=== PATIENT | male | born 2000 | race Caucasian/White ===

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

== ENCOUNTER → 2020-04-26 | Outpatient (REF) | payer OTHER ==
[~2020-04-26] MED LIST changes: -CIPR0.3S OD; +CIPR0.3S6 OD; +MONT10TA10 PO; -MONT10TA4 PO
[2020-04-26 13:02] LABS: HEMATOCRIT 42.3 % (42.0-52.0); HEMOGLOBIN 13.9 g/dl (13.5-17.5); MEAN CORPUSCULAR HEMOGLOBIN 31.4 pg (27.0-33.0); MEAN CORPUSCULAR HGB CONC 32.9 g/dl (32.0-36.5); MEAN CORPUSCULAR VOLUME 95.7 fl (80.0-96.0); PLATELET COUNT, AUTOMATED 255 10^3/uL (150-450); RED BLOOD COUNT 4.42 10^6/uL (4.30-6.10); WHITE BLOOD COUNT 9.4 10^3/uL (4.0-10.0)
[2020-04-26 13:23] LABS: ATYPICAL LYMPH 3 % (0-5); BASOPHILS 1 % (0-1); EOSINOPHILS 2 % (0-3); LYMPHOCYTES 57 % (16-44); MONOCYTES 2 % (0-5); NEUTROPHILS 35 % (28-66); PLATELET ESTIMATE NORMAL (NORMAL)
[2020-04-26 13:41] LABS: ALBUMIN 4.7 GM/DL (3.2-5.2); ALT/SGPT 17 U/L (12-78); BILIRUBIN,TOTAL 0.7 MG/DL (0.2-1.0); BLOOD UREA NITROGEN 10 MG/DL (7-18); CALCIUM LEVEL 9.5 MG/DL (8.5-10.1); CARBON DIOXIDE LEVEL 29 MEQ/L (21-32); CHLORIDE LEVEL 107 MEQ/L (98-107); CHOLESTEROL LEVEL 165 MG/DL (<200); CHOLESTEROL RISK RATIO 2.538 (<5); CREATININE FOR GFR 0.98 MG/DL (0.70-1.30); FREE T4 0.94 NG/DL (0.78-1.33); GLUCOSE, FASTING 95 MG/DL (70-100); HDL CHOLESTEROL 65 MG/DL (>40); LDL CHOLESTEROL 75 MG/DL (<100); NON-HDL-C 100 MG/DL; POTASSIUM SERUM 4.4 MEQ/L (3.5-5.1); SODIUM LEVEL 141 MEQ/L (136-145); TOTAL 25(OH) VITAMIN D 17.1 NG/ML (30.0-100.0); TOTAL PROTEIN 7.4 GM/DL (6.4-8.2); TRIGLYCERIDES LEVEL 123 MG/DL (<150)
[2020-04-26 13:46] LABS: APPEARANCE, URINE CLEAR (CLEAR); BACTERIA, URINE AUTO NEGATIVE (NEGATIVE); BILIRUBIN, URINE AUTO NEGATIVE (NEGATIVE); BLOOD, URINE BLOOD NEGATIVE (NEGATIVE); COLOR, URINE STRAW (YELLOW); GLUCOSE, URINE (UA) AUTO NEGATIVE (NEGATIVE); KETONE, URINE AUTO NEGATIVE (NEGATIVE); LEUKOCYTE ESTERASE, URINE AUTO NEGATIVE (NEGATIVE); NITRITE, URINE AUTO NEGATIVE (NEGATIVE); PROTEIN, URINE AUTO NEGATIVE (NEGATIVE); RBC, URINE AUTO 0 /HPF (0-3); SPECIFIC GRAVITY URINE AUTO 1.006 (1.002-1.035); SQUAMOUS EPITHELIAL CELL UR AU 0 /HPF (0-6); UROBILINOGEN, URINE AUTO 0.2 mg/dL (0.0-2.0); WBC, URINE AUTO 1 /HPF (0-3)
[2020-04-26 16:24] LABS: HEMOGLOBIN A1c 5.3 %
== END ==
LOC: M LAB REF 12:19
PROVIDERS: ATTEND Nurse Practitioner Family
DX: Z00.01 Encounter for general adult medical examination with abnormal findings (principal); Z13.228 Encounter for screening for other metabolic disorders; F17.200 Nicotine dependence, unspecified, uncomplicated; J45.909 Unspecified asthma, uncomplicated; F31.9 Bipolar disorder, unspecified; R30.0 Dysuria

== ENCOUNTER 2020-10-09 21:36 | Emergency (ER) | payer OTHER ==
[~2020-10-09] VITALS: Ht 175.3 cm; Wt 59.1 kg
[~2020-10-09 21:36] MED LIST changes: +OMEP40CA4 PO; -OMEP40CA97 PO
[2020-10-09 21:56] VITALS: BP 131/85
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
[2020-10-10] MEDS ORDERED: IBUP-1022 PO (00:27)
[2020-10-10] MEDS ORDERED: IBUPROFEN 800 MG TAB PO ONE (00:40)
== END 2020-10-10 00:55 | disposition home or self-care (01) ==
LOC: M ED 21:36
DX: S93.402A Sprain of unspecified ligament of left ankle, initial encounter (principal); V48.2XXA Person on outside of car injured in noncollision transport accident in nontraffic accident, initial encounter; Z88.8 Allergy status to other drugs, medicaments and biological substances

== ENCOUNTER → 2020-10-13 | Outpatient (CLI) | payer OTHER, BC ==
--- NOTE | 2020-10-13 16:31 | REP ---
INDICATION: PAIN. COMPARISON: Comparison left ankle series October 09, 2020.. TECHNIQUE: A single weight-bearing AP radiograph of the foot is acquired as requested. FINDINGS: The Lisfranc articulations are normally aligned. No fracture or subluxation is seen. Overall mineralization pattern is normal. IMPRESSION: Negative standing AP view of the left foot. <Electronically signed by Boris Fierro > 10/13/20 0730
--- NOTE | 2020-10-13 16:32 | REP ---
INDICATION: PAIN. COMPARISON: None. TECHNIQUE: Left ankle series: 7 views including Varus and valgus stress views. FINDINGS: Ankle mortise is intact. Stress view show no subluxation or instability. No fracture is seen. Overall mineralization pattern is normal. No evidence of arthropathy. IMPRESSION: Negative radiographs of the left ankle including stress views. <Electronically signed by Boris Fierro > 10/13/20 [id number]
== END ==
LOC: M SOG 15:27
PROVIDERS: ATTEND Orthopaedic Surgery Adult Reconstructive Orthopaedic Surgery
DX: M79.672 Pain in left foot (principal); M25.572 Pain in left ankle and joints of left foot

== ENCOUNTER 2020-12-31 23:48 | Emergency (ER) | payer OTHER ==
[~2020-12-31] VITALS: Ht 172.7 cm; Wt 55.5 kg
[2021-01-01 07:41] VITALS: BP 120/50
== END 2021-01-01 08:15 | disposition home or self-care (01) ==
LOC: M ED 23:48
DX: R42 Dizziness and giddiness (principal); Z88.8 Allergy status to other drugs, medicaments and biological substances; Z88.1 Allergy status to other antibiotic agents

== ENCOUNTER 2021-01-16 14:00 | Emergency (ER) | payer OTHER ==
[~2021-01-16] VITALS: Ht 172.7 cm; Wt 54.4 kg
[2021-01-16 14:01] VITALS: BP 123/65
[2021-01-16] MEDS ORDERED: LIDOCAINE 5% (LIDODERM) PATCH TD ONE (16:35)
[2021-01-16] MEDS ORDERED: KETOROLAC 60MG 2ML VIAL IM ONE (16:35)
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
[2021-01-16] MEDS ORDERED: ASPE4PAD TOP (17:16)
[2021-01-16] MEDS ORDERED: METH-1165 PO (17:16)
[2021-01-16] MEDS ORDERED: NAPR-837 PO (17:16)
[2021-01-16] MEDS ORDERED: methocarbamoL 750 MG TAB PO ONE (17:20)
[2021-01-16] MEDS ORDERED: **NOTE PATIENT COMMENT** MISC XX SCH (21:00)
== END 2021-01-16 17:35 | disposition home or self-care (01) ==
LOC: M ED 14:00
DX: M54.6 Pain in thoracic spine (principal); Z88.8 Allergy status to other drugs, medicaments and biological substances
CPT/HCPCS: 72125; 72128; 96372; 99282; J1885

== ENCOUNTER 2021-03-27 10:08 | Emergency (ER) | payer OTHER ==
[~2021-03-27] VITALS: Ht 172.7 cm; Wt 54.8 kg
[~2021-03-27 10:08] MED LIST changes: +ASPE4PAD TOP; +METH-1165 PO; +NAPR-837 PO
--- OUTSIDE RECORDS SUMMARY | 2021-03-27 10:13 | CCD | Continuity of Care Document ---
Author Author Reji LUCAS DO Organization Unknown Address [address] [place] [address], [facility] [place] [address] Phone [phone] Care Team Providers Care Swimming Pool Servicer Name Role Phone AUTM Unavailable Problems Active Problems Provider Date Allergic asthma without status asthmaticus Onset: 03/07/2013 Essential hypertension Onset: 03/07/2013 Social History Type Date Description Comments Sex Unknown Tobacco Use Start: Unknown Never Smoked Cigarettes ETOH Use Denies alcohol use Recreational Drug Use Marijuana and THC Pens Tobacco Use Start: Unknown Patient is a current smoker, smo kes some days Tobacco Use Start: Unknown Vape Daily Allergies, Adverse Reactions, Alerts Active Allergies Criticality Reaction | Severity Comments Date Ceftin Unable to assess criticality 03/07/2013 Medications Active Medications SIG Qnty Indications Ordering Provide r Date Naproxen 500mg Tablets Unknown Methocarbamol 750mg Tablets 2 tablets by mouth every 6 hourly as needed for muscle spasm Unknown Immunizations Description No Information Available Vital Signs Date Vital Result Comment 10/13/2020 2:57pm Body Temperature 97.1 F Height 69 inches 5'9" Weight 121.00 lb BMI (Body Mass Index) 17.9 kg/m2 [place] Body Weight 160 lb Weight 54.886 kg BSA (Body Surface Area) 1.67 m2 03/07/2013 8:32am Body Temperature 98.0 F Height 62 inches 5'2" Weight 102.00 lb BMI (Body Mass Index) 18.7 kg/m2 Weight 46.267 kg Weight Percentile 54th Height Percentile 59 % BSA (Body Surface Area) 1.44 m2 Results Description No Information Available Procedures Date Code Description Status 01/18/2021 25128 Office/Outpatient Established Lo w MDM 20-29 Min Completed 10/13/2020 66766 Office/Outpatient New Low MDM 30 -44 Minutes Completed Medical Devices Description No Information Available Encounters Type Date Location Provider Dx Diagnosis Office Visit 01/18/2021 8:30a [facility] Edwin Lucas DO M54.6 Pain in thoracic spine Office Visit 10/13/2020 3:00p [facility] Antelmo Reed MD M25.572 Pain in left ankle and joints of left foot Assessments Date Code Description Provider 01/18/2021 M54.6 Pain in thoracic spine William Lucas DO 10/13/2020 M25.572 Pain in left ankle and joints of left foot Antelmo Reed MD Plan of Treatment Future Appointment(s):* 02/01/2021 9:40 am - William Lucas DO at [facility] 01/18/2021 - William Lucas DO* M54.6 Pain in thoracic spine Functional Status Description No Information Available Mental Status Description No Information Available Referrals Description No Information Available
--- OUTSIDE RECORDS SUMMARY | 2021-03-27 10:13 | CCD | Continuity of Care Document ---
Author Author Reji LUCAS DO Organization Unknown Address [id number] [place] [address] [place] [address] Phone [phone] Care Team Providers Care Nurse First Aid Name Role Phone AUTM Unavailable Problems Active [...] days Tobacco Use Start: Unknown Vape Daily Allergies and adverse reactions Active Allergies Criticality Reaction | Severity Comments Date Ceftin Unable to assess criticality 03/07/2013 Trazodone Unable to assess criticality hallucinaton s 02/01/2021 Medications Active Medications SIG Qnty Indications Ordering Provide r Date Naproxen 500mg Tablets Unknown Methocarbamol 750mg Tablets 2 tablets by mouth every 6 hourly as needed for muscle spasm Unknown Lidocaine 5% Patches Unknown Immunizations Description No Information Available Vital Signs Date Vital Result Comment 10/13/2020 2:57pm Body Temperature 97.1 F Height 69 inches 5'9" Weight 121.00 lb BMI (Body Mass Index) 17.9 kg/m2 [place] Body Weight 160 lb Weight 54.886 kg BSA (Body Surface Area) 1.67 m2 03/07/2013 8:32am Body Temperature 98.0 F Height 62 inches 5'2" Weight 102.00 lb BMI (Body Mass Index) 18.7 kg/m2 Weight 46.267 kg Weight Percentile 54th Height Percentile 59 % BSA (Body Surface Area) 1.44 m2 Results Description No Information Available Procedures Date Code Description Status 01/18/2021 82054 Office/Outpatient Established Lo w MDM 20-29 Min Completed 10/13/2020 56114 Office/Outpatient New Low MDM 30 -44 Minutes Completed Medical Devices Description No Information Available Encounters Type Date Location Provider Dx Diagnosis Office Visit 01/18/2021 8:30a [facility] Edwin Lucas DO M54.6 Pain in thoracic spine Office Visit 10/13/2020 3:00p [facility] Antelmo Reed MD M25.572 Pain in left ankle and joints of left foot Assessments Date Code Description Provider 02/01/2021 M54.6 Pain in thoracic spine William Lucas DO 01/18/2021 M54.6 Pain in thoracic spine William Lucas DO 10/13/2020 M25.572 Pain in left ankle and joints of left foot Antelmo Reed MD Plan of Treatment 02/01/2021 - William Lucas DO* M54.6 Pain in thoracic spine* New Xrays:* MRI Thoracic Spine W/O Contrast, Ordered: 02/01/21 * MRI Lumbar Spine W/O Contrast, Ordered: 02/01/21 * Comments:* Follow-up to review MRI thoracic spine Functional Status Description No Information Available Mental Status Description No Information Available Referrals Description No Information Available
--- OUTSIDE RECORDS SUMMARY | 2021-03-27 10:13 | CCD | Continuity of Care Document ---
Author Author Reji LUCAS DO Organization Unknown Address [address] [place] [address] [place] [address] Phone [phone] Care Team Providers Care Laborer Adjustable Steel Joist Name Role Phone AUTM Unavailable Problems Active [...] lb BMI (Body Mass Index) 17.9 kg/m2 [place] Body Weight 160 lb Weight 54.886 kg BSA (Body Surface Area) 1.67 m2 03/07/2013 8:32am Body Temperature 98.0 F Height 62 inches 5'2" Weight 102.00 lb BMI (Body Mass Index) 18.7 kg/m2 Weight 46.267 kg Weight Percentile 54th Height Percentile 59 % BSA (Body Surface Area) 1.44 m2 Results Description No Information Available Procedures Date Code Description Status 02/01/2021 89163 Office/Outpatient Established Lo w MDM 20-29 Min Completed 01/18/2021 52666 Office/Outpatient Established Lo w MDM 20-29 Min Completed 10/13/2020 65085 Office/Outpatient New Low MDM 30 -44 Minutes Completed Medical Devices Description No Information Available Encounters Type Date Location Provider Dx Diagnosis Office Visit 02/01/2021 9:40a [facility] Edwin Lucas DO M54.6 Pain in thoracic spine Office Visit 01/18/2021 8:30a [facility] Edwin Lucas DO M54.6 Pain in thoracic spine Office Visit 10/13/2020 3:00p [facility] Antelmo Reed MD M25.572 Pain in [...] Lucas DO* M54.6 Pain in thoracic spine* Comments:* Follow-up to review MRI thoracic spine Functional Status Description No Information Available Mental Status Description No Information Available Referrals Description No Information Available
--- OUTSIDE RECORDS SUMMARY | 2021-03-27 10:13 | CCD | Continuity of Care Document ---
Author Author Reji LUCAS DO Organization Unknown Address [address] [place] [address] [place] [address] Phone [phone] Care Team Providers Care Lead Teller Name Role Phone AUTM Unavailable Problems Active [...] lb BMI (Body Mass Index) 17.9 kg/m2 [place] Body Weight 160 lb Weight 54.886 kg BSA (Body Surface Area) 1.67 m2 03/07/2013 8:32am Body Temperature 98.0 F Height 62 inches 5'2" Weight 102.00 lb BMI (Body Mass Index) 18.7 kg/m2 Weight 46.267 kg Weight Percentile 54th Height Percentile 59 % BSA (Body Surface Area) 1.44 m2 Results Description No Information Available Procedures Date Code Description Status 10/13/2020 71421 Office/Outpatient New Low MDM 30 -44 Minutes Completed Medical Devices Description No Information Available Encounters Type Date Location Provider Dx Diagnosis Office Visit 10/13/2020 3:00p [facility] Antelmo Reed MD M25.572 Pain in left ankle and joints of left foot Assessments Date Code Description Provider 01/18/2021 M54.5 Low back pain Martinez Lucas DO 10/13/2020 M25.572 Pain in left ankle and joints of left foot Antelmo Reed MD Plan of Treatment Future Appointment(s):* 02/01/2021 9:40 am - William Lucas DO at [facility] 01/18/2021 - William Lucas DO* M54.5 Low back pain* Comments:* 1. Work off note 1 week2. Follow-up 1 week for reassessment. Functional Status Description No Information Available Mental Status Description No Information Available Referrals Description No Information Available
--- OUTSIDE RECORDS SUMMARY | 2021-03-27 10:14 | CCD ---
Author Author [facility] Organization [facility] Address Unknown Phone Unavailable Care Team Providers Care Police Specialist Name Role Phone NO, PCP Unavailable Unavailable Sabrina Ramirez Unavailable Huang, A Ping TRAY WORKER Unavailable Unavailable Huang, A Ping TRAY WORKER Unavailable Unavailable Huang, A Ping TRAY WORKER Unavailable Unavailable Huang, A Ping TRAY WORKER Unavailable Unavailable Huang, A Ping TRAY WORKER Unavailable Unavailable Huang, A Ping TRAY WORKER Unavailable Unavailable Huang, A Ping TRAY WORKER Unavailable Unavailable Huang, A Ping TRAY WORKER Unavailable Unavailable Huang, A Ping TRAY WORKER Unavailable Unavailable Huang, A Ping TRAY WORKER Unavailable Unavailable Huang, A Ping TRAY WORKER Unavailable Unavailable Huang, A Ping TRAY WORKER Unavailable Unavailable Huang, A Ping TRAY WORKER Unavailable Unavailable Huang, A Ping TRAY WORKER Unavailable Unavailable Huang, A Ping TRAY WORKER Unavailable Unavailable Huang, A Ping TRAY WORKER Unavailable Unavailable Huang, A Ping TRAY WORKER Unavailable Unavailable Huang, A Ping TRAY WORKER Unavailable Unavailable Huang, A Ping TRAY WORKER Unavailable Unavailable Huang, A Ping TRAY WORKER Unavailable Unavailable Huang, A Ping TRAY WORKER Unavailable Unavailable Huang, A Ping TRAY WORKER Unavailable Unavailable Huang, A Ping TRAY WORKER Unavailable Unavailable Huang, A Ping TRAY WORKER Unavailable Unavailable Huang, A Ping TRAY WORKER Unavailable Unavailable Huang, A Ping TRAY WORKER Unavailable Unavailable Huang, A Ping TRAY WORKER Unavailable Unavailable Huang, A Ping TRAY WORKER Unavailable Unavailable Huang, A Ping TRAY WORKER Unavailable Unavailable Huang, A Ping TRAY WORKER Unavailable Unavailable Huang, A Ping TRAY WORKER Unavailable Unavailable WILLIAMS KWON MD Unavailable Unavailable WILLIAMS KWON MD Unavailable Unavailable WILLIAMS KWON MD Unavailable Unavailable Antelmo Reed MD Unavailable Unavailable Antelmo Reed MD Unavailable Unavailable Antelmo Reed MD Unavailable Unavailable Antelmo Reed MD Unavailable Unavailable Antelmo Reed MD Unavailable Unavailable Antelmo Reed MD Unavailable Unavailable Antelmo Reed MD Unavailable Unavailable Antelmo Reed MD Unavailable Unavailable Antelmo Reed MD Unavailable Unavailable Antelmo Reed MD Unavailable Unavailable Antelmo Reed MD Unavailable Unavailable Jeff Simmons Unavailable Jeff Simmons Unavailable Dennis WADE MD Unavailable Unavailable MAURODennis CAVANAUGH MD Unavailable Unavailable MAURODennis CAVANAUGH MD Unavailable Unavailable MAURODennis CAVANAUGH MD Unavailable Unavailable MAURODennis CAVANAUGH MD Unavailable Unavailable MAURODennis CAVANAUGH MD Unavailable Unavailable MAURODennis CAVANAUGH MD Unavailable Unavailable MAURODennis CAVANAUGH MD Unavailable Unavailable MAURODennis CAVANAUGH MD Unavailable Unavailable MAURODennis CAVANAUGH MD Unavailable Unavailable MAURODennis CAVANAUGH MD Unavailable Unavailable MAURODennis CAVANAUGH MD Unavailable Unavailable MAURODennis CAVANAUGH MD Unavailable Unavailable MAURODennis CAVANAUGH MD Unavailable Unavailable MAURODennis CAVANAUGH MD Unavailable Unavailable MAURODennis CAVANAUGH MD Unavailable Unavailable MAURODennis CAVANAUGH MD Unavailable Unavailable MAURODennis CAVANAUGH MD Unavailable Unavailable MAURODennis CAVANAUGH MD Unavailable Unavailable MAURODennis CAVANAUGH MD Unavailable Unavailable Sindy IGLESIAS MD Unavailable Unavailable Sindy IGLESIAS MD Unavailable Unavailable CHANLIECCO, C FRANCESCA MD Unavailable Unavailable CHANLIECCO, C FRANCESCA MD Unavailable Unavailable CHANLIECCO, C FRANCESCA MD Unavailable Unavailable CHANLIECCO, C FRANCESCA MD Unavailable Unavailable CHANLIECCO, C FRANCESCA MD Unavailable Unavailable CHANLIECCO, C FRANCESCA MD Unavailable Unavailable CHANLIECCO, C FRANCESCA MD Unavailable Unavailable CHANLIECCO, C FRANCESCA MD Unavailable Unavailable CHANLIECCO, C FRANCESCA MD Unavailable Unavailable Re-disclosure Warning The records that you are about to access may contain information from federally-assisted alcohol or drug abuse programs. If such information is present, then the following federally mandated warning applies: This information has been disclosed to you from records protected by federal confidentiality rules (42 CFR part 2). The federal rules prohibit you from making any further disclosure of this information unless further disclosure is expressly permitted by the written consent of the person to whom it pertains or as otherwise permitted by 42 CFR part 2. A general authorization for the release of medical or other information is NOT sufficient for this purpose. The Federal rules restrict any use of the information to criminally investigate or prosecute any alcohol or drug abuse patient.The records that you are about to access may contain highly sensitive health information, the redisclosure of which is protected by Article 27-F of the [facility] Public Health law. If you continue you may have access to information: Regarding HIV / AIDS; Provided by facilities licensed or operated by the [facility] Office of Mental Health; or Provided by the [facility] Office for People With Developmental Disabilities. If such information is present, then the following [facility] mandated warning applies: This information has been disclosed to you from confidential records which are protected by state law. State law prohibits you from making any further disclosure of this information without the specific written consent of the person to whom it pertains, or as otherwise permitted by law. Any unauthorized further disclosure in violation of state law may result in a fine or fdc sentence or both. A general authorization for the release of medical or other information is NOT sufficient authorization for further disc losure. Family History Family Member Name Family Member Gender Family Member Status Date o f Status Description Data Source(s) Unknown Unknown Problem [facility] ([facility]) Mom Encounters Encounter Providers Location Date Indications Data Source(s ) Outpatient Attender: WILLIAMS Beckman/Meliza/Prasad/ Reindl 02/01/2021 09:40:00 AM EDT [facility] ([facility] Outpatient Attender: WILLIAMS Beckman/[place]ras/Prasad/ Reindl 01/18/2021 08:30:00 AM EDT [facility] ([facility]) Emergency Attender: FRANCESCA IGLESIAS MDConsultant: PCP NO 12/14/2020 09:48:00 PM EDT - 12/14/2020 11:43:00 PM EDT [facility] Patient discharged. Outpatient Attender: Antelmo Beckman/Meliza/Prasad/Rein dl 10/13/2020 03:00:00 PM EDT [facility] ([facility]) Brief Individual Psychotherapy - 30 min Attender: Sabrina wiley [facility] 07/12/2020 11:00:00 AM EDT - 07/12/2020 11:00:00 AM EDT [facility] ([facility]) Attender: Sabrina Ramirez 07/12/2020 12:00:00 AM EDT [facility] ([facility]) Emergency Attender: CHRISTINA WADE MDConsultant: PCP NO 06/12/2020 07:14:00 PM EST - 06/12/2020 08:46:[address] [facility] Brief Individual Psychotherapy - 30 min Attender: Sabrina wiley [facility] 06/02/2020 12:45:00 PM EST - 06/02/2020 12:45:00 PM EST [facility] ([facility]) Attender: Sabrina Ramirez 06/02/2020 12:00:00 AM EST [facility] ([facility]) Extended Individual Psychotherapy - 45 min Attender: Ken Simmons [facility] 05/28/2020 02:00:00 AM EST - 05/28/2020 02:00:00 AM EST [facility] ([facility]) Attender: Jeff Simmons 05/28/2020 12:00:00 AM EST [facility] ([facility]) Extended Individual Psychotherapy - 45 min Attender: Ken amaya [facility] 05/21/2020 02:00:00 AM EST - 05/21/2020 02:00:00 AM EST [facility] ([facility]) Attender: Jeff Simmons 05/21/2020 12:00:00 AM EST [facility] ([facility]) Extended Individual Psychotherapy - 45 min Attender: Ken jose luis [facility] 05/07/2020 02:00:00 AM EST - 05/07/2020 02:00:00 AM EST [facility] ([facility]) Attender: Jeff Simmons 05/07/2020 12:00:00 AM EST [facility] ([facility]) CHIDI ChiBC: [address] [place] [address], Ph. Attender: Ping BELTRAN [facility] Medical 04/26/2020 12:00:00 AM EST [facility] ([facility]) Extended Individual Psychotherapy - 45 min Attender: Ken jose luis [facility] 04/13/2020 12:00:00 PM EST - 04/13/2020 12:00:00 PM EST [facility] ([facility]) Attender: Jeff Simmons 04/13/2020 12:00:00 AM EST [facility] ([facility]) Extended Individual Psychotherapy - 45 min Attender: Ken amaya [facility] 03/01/2020 02:00:00 AM EST - 03/01/2020 02:00:00 AM EST [facility] ([facility]) Attender: Jeff Simmons 03/01/2020 12:00:00 AM EST [facility] ([facility]) CHIDI ChiBC: [address] [place] [address], Ph. Attender: Ping BELTRAN [facility] Medical 02/25/2020 12:00:00 AM EST [facility] ([facility]) RUBY Chi-BC: [address] [place] [address], Ph. Attender: Ping BELTRAN ID - [facility] Medical 02/25/2020 12:00:00 AM EST [facility] ([facility]) Attender: Jeff Simmons 02/17/2020 12:00:00 AM EDT [facility] ([facility]) Extended Individual Psychotherapy - 45 min Attender: Ken amaya [facility] 02/16/2020 02:00:00 AM EDT - 02/16/2020 02:00:00 AM EDT [facility] ([facility]) Attender: Jeff Simmons 02/02/2020 12:00:00 AM EDT [facility] ([facility]) Extended Individual Psychotherapy - 45 min Attender: Ken amaya [facility] 01/30/2020 02:00:00 AM EDT - 01/30/2020 02:00:00 AM EDT [facility] ([facility]) Immunizations Vaccine Date Status Description Data Source(s) New in 2011. IIV4 02/25/2020 03:22:00 PM EST completed 0.5 mL [facility] ([facility]) New in 2011. IIV4 02/25/2020 03:22:00 PM EST completed 0.5 mL [facility] ([facility]) Medications Medication Brand Name Start Date Product Form Dose Route Admi nistrative Instructions Pharmacy Instructions Status Indications Reaction Description Data Source(s) 4 % 01/18/2021 12:00:00 AM EDT adhesive patch,medicate d 15 APPLY 1 PATCH TOPICALLY ONCE DAILY APPLY 1 PATCH TOPICALLY ONCE DAILY SOLD: 01/18/2021 [facility] 500 mg 01/17/2021 12:00:00 AM EDT tablet 30 TAKE ONE TABLET BY MOUTH TWICE A DAY - TAKE WITH FOOD TAKE ONE TABLET BY MOUTH TWICE A DAY - TAKE WITH FOOD SOLD: 01/17/2021 [facility] 750 mg 01/17/2021 12:00:00 AM EDT tablet 30 TAKE ONE TABLET BY MOUTH THREE TIMES A DAY TAKE ONE TABLET BY MOUTH THREE TIMES A DAY SOLD: 01/17/2021 [facility] 600 mg 12/15/2020 12:00:00 AM EDT tablet 28 TAKE ONE TABLET BY MOUTH FOUR TIMES A DAY NEEDED FOR PAIN TAKE ONE TABLET BY MOUTH FOUR TIMES A DA Y NEEDED FOR PAIN SOLD: 12/17/2020 [facility] 600 mg 10/10/2020 12:00:00 AM EDT tablet 30 TAKE ONE TABLET BY MOUTH EVERY 6 HOURS NEEDED FOR PAIN TAKE ONE TABLET BY MOUTH EVERY 6 HOURS A S NEEDED FOR PAIN SOLD: 10/10/2020 [facility] Cyclobenzaprine hydrochloride 10 MG Oral Tablet CYCLOBENZAPR INE HCL 06/13/2020 12:00:00 AM EST tablet 9 TAKE ONE TABLET BY MOUTH THREE TIMES A DAY TAKE ONE TABLET BY MOUTH THREE TIMES A DAY SOLD: 06/13/2020 [facility] olanzapine 5 MG Oral Tablet olanzapine 5 mg tablet TAKE ONE TABLET BY MOUTH EVERY DAY AT BEDTIME olanzapine 5 mg tablet TAKE ONE TABLET B Y MOUTH EVERY DAY AT BEDTIME completed olanzapine 5 MG Oral Tablet [facility]) Penicillin V Potassium 500 MG Oral Tablet penicillin V potassium 500 mg tablet penicillin V potassium 500 mg tablet c ompleted penicillin V potassium 500 MG Oral Tablet [place] [facility]) Amoxicillin 875 MG / Clavulanate 125 MG Oral Tablet amoxicillin 875 mg-potassium clavulanate 125 mg tablet amoxicillin 875 mg-potassium clavulanate 125 mg tablet completed amoxicillin 875 MG / clavulanate 125 MG Oral Tablet [place] ([facility]) Oseltamivir 75 MG Oral Capsule oseltamiv ir 75 mg capsule TAKE ONE CAPSULE BY MOUTH TWICE A DAY oseltamivir 75 mg capsule TAKE ONE CAPSU LE BY MOUTH TWICE A DAY completed oseltamivir 75 M G Oral Capsule [place] ([facility]) cetirizine hydrochloride 10 MG Oral Tabl et cetirizine 10 mg tablet TAKE ONE TABLET BY MOUTH EVERY DAY cetirizine 10 mg tablet TAKE ONE TABLET BY MOUTH EVERY DAY completed cetirizine hydro chloride 10 MG Oral Tablet [place] ([facility]) Amoxicillin 875 MG / Clavulanate 125 MG Oral Tablet amoxicillin 875 mg-potassium clavulanate 125 mg tablet amoxicillin 875 mg-potassium clavulanate 125 mg tablet completed amoxicillin 875 MG / clavulanate 125 MG Oral Tablet [facility] ([facility]) cetirizine hydrochloride 10 MG Oral Tabl et cetirizine 10 mg tablet TAKE ONE TABLET BY MOUTH EVERY DAY cetirizine 10 mg tablet TAKE ONE TABLET BY MOUTH EVERY DAY completed cetirizine hydro chloride 10 MG Oral Tablet [place] ([facility]) 24 HR Guanfacine 1 MG Extended Release O ral Tablet guanfacine ER 1 mg tablet,extended release 24 hr TAKE ONE TABLET BY MOUTH EVERY MORNING guanfacine ER 1 mg tablet,extended release 24 hr TAKE ONE TABLET BY MOUTH EVERY MORNING completed 24 HR guanfaci ne 1 MG Extended Release Oral Tablet [place] ([facility]) Prednisone 20 MG Oral Tablet prednisone 20 mg tablet TAKE TWO TABLETS BY MOUTH EVERY DAY WITH MEALS prednisone 20 mg tablet TAKE TWO TABLETS BY MOUTH EVERY DAY WITH MEALS completed prednisone 20 MG Oral Tablet [place] ([facility]) Penicillin V Potassium 500 MG Oral Tablet penicillin V potassium 500 mg tablet penicillin V potassium 500 mg tablet c ompleted penicillin V potassium 500 MG Oral Tablet [place] ([facility]) Oseltamivir 75 MG Oral Capsule oseltamiv ir 75 mg capsule TAKE ONE CAPSULE BY MOUTH TWICE A DAY oseltamivir 75 mg capsule TAKE ONE CAPSU LE BY MOUTH TWICE A DAY completed oseltamivir 75 M G Oral Capsule [place] ([facility]) 24 HR Guanfacine 1 MG Extended Release O ral Tablet guanfacine ER 1 mg tablet,extended release 24 hr TAKE ONE TABLET BY MOUTH EVERY MORNING guanfacine ER 1 mg tablet,extended release 24 hr TAKE ONE TABLET BY MOUTH EVERY MORNING completed 24 HR guanfaci ne 1 MG Extended Release Oral Tablet [place] ([facility]) olanzapine 5 MG Oral Tablet olanzapine 5 mg tablet TAKE ONE TABLET BY MOUTH EVERY DAY AT BEDTIME olanzapine 5 mg tablet TAKE ONE TABLET B Y MOUTH EVERY DAY AT BEDTIME completed olanzapine 5 MG Oral Tablet [place] ([facility]) Prednisone 20 MG Oral Tablet prednisone 20 mg tablet TAKE TWO TABLETS BY MOUTH EVERY DAY WITH MEALS prednisone 20 mg tablet TAKE TWO TABLETS BY MOUTH EVERY DAY WITH MEALS completed prednisone 20 MG Oral Tablet [place] ([facility]) Insurance Providers Payer name Policy type / Coverage type Policy ID Covered republican ID Covered republican's relationship to rivero Policy [place] Plan Information BC/BS o [place] [facility] (HMO) [id number] Family Dependent [id number] MEDICAID [id number] Self [id number] H[employer] Options Commercial [id number] Family Dependent [id number] [employer] Commercial [id number] Family Dependent [id number] Hmo [employer] Options Commercial [id number] Family Dependent [id number] [facility] I [id number] Self [id number] [facility] Community Plan Commercial [id number] Family Dependent [id number] [facility] Community Plan Commercial [id number] Family Dependent [id number] [facility] Community Plan Commercial [id number] Family Dependent [id number] Medicaid Dental S [id number] S [id number] [employer] Net () Commercial [id number] Family Dependent [id number] Health Net () Commercial [id number] Family Dependent [id number] Health Net () Commercial [id number] Family Dependent [id number] Medicaid Medicaid [id number] Family Dependent [id number] Medicaid Medicaid [id number] Family Dependent [id number] Medicaid Medicaid [id number] Family Dependent [id number] U [id number] Self [id number] U [id number] Child [id number] MEDICAID M [id number] Self [id number] [place] 2017 Commercial [id number] Family Dependent [id number] [place] 2017 Commercial [id number] Family Dependent [id number] Medicaid Dental O [id number] S [id number] Medicaid P [id number] S [id number] [facility] [id number] FA2 [id number] Medicaid S UNAVAILABLE S UNAVAILA [facility] P UNAVAILABLE S UNAVAILABLE [place] P [id number] S [id number] MEDICAID [id number] SP [id number] [facility] [id number] FA2 [id number] [place]ARE [place] O [id number] S [id number] RUST HUMANA [id number] FA2 [id number] [place] [id number] SP [id number] MEDICAID -O/P EMERGENCY ROOM [id number] REY [id number] SP [id number] OTHER NO FAULT [id number] SP [id number] ESURANCE NO FAULT SP ESURANCE NO FAULT [id number] SP [id number] BCBS [place] HMO [id number] SP [id number] BLUE CROSS WHEAT PLAN [id number] SP [id number] BLUE CROSS WHEAT PLAN [id number] SP [id number] MEDICAID [id number] SP [id number] [facility] COMMUNITY PLAN MCDO [id number] SP [id number] MEDICAID [id number] SP [id number] SELF PAY ONLY D Managed Care [facility] O [id number] S [id number] D Managed Care [facility] P [id number] S [id number] [place] -OP [id number] 18 [id number] [facility](MCAID) P [id number] C [id number] EXCELLUS BCBS P [id number] S [id number] MEDICAID REF AMBULAT W [id number] S [id number] PCP [facility] COMMUNITY PL O [id number] S [id number] MEDICAID W [id number] BLUE CHOICE OPTION O [id number] S [id number] O BLUE [id number] SP [id number] SELF PAY UNAVAILABLE MO UNAVAILA BLE O BLUE [id number] SP [id number] Problems, Conditions, and Diagnoses Code Display Name Description Problem Type Effective Dates Data Source(s) R65311 Nicotine dependence, other tobacco produ ct, uncomplicated Nicotine dependence, other tobacco product, uncomplicated Diagnosis 12/14 09:48:00 PM [facility] G8929 Other chronic pain Other chronic pain Diagnosis 09:48:00 PM [facility] R109 Unspecified abdominal pain Unspecified abdominal pain Diagnosis 12/14/2020 09:48:00 PM [facility] [id number] Unspecified place in unspeci fied non-institutional (private) residence as the place of occurrence of the external cause Unspecified place in unspecified non-institutional (private) residence as the place of occurrence of the external cause Diagnosis 06/12/2020 07:14:00 PM [facility] [id number] Contact with other sharp obj ect(s), not elsewhere classified, initial encounter Contact with other sharp object(s), not elsewhere classified, initial encounter Diagnosis 06/12/2020 07:14:00 PM [facility] Q00185 Nicotine dependence, cigarettes, uncompl icated Nicotine dependence, cigarettes, uncomplicated Diagnosis 06/12/2020 07:14:00 PM [facility] [id number] Sprain of interphalangeal joint of right thumb, initial encounter Sprain of interphalangeal joint of right thumb, initial encounter Diagnosis 06/12/2020 07:14:00 PM [facility] [id number] Unspecified injury of right wrist, hand and finger(s), initial encounter Unspecified injury of right wrist, hand and finger(s), initial encounter Diagnosis 06/12/2020 07:14:00 PM [facility] F43.8 Other reactions to severe stress Other S 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 07/12/2020 12:00:00 AM EDT [facility] ([facility]) F12.20 Cannabis dependence, uncomplicated Cannabis Use Disorder, Moderate Condition 07/12/2020 12:00:00 AM EDT [facility] ([facility]) F31.9 Bipolar disorder, unspecified Unspecified Bipola r and Related Disorder Condition 07/12/2020 12:00:00 AM EDT [facility] ([facility]) Surgeries/Procedures Procedure Description Date Indications Data Source(s) OFFICE OUTPATIENT VISIT 15 MINUTES 02/01/2021 12:00:00 AM EDT [facility] ([facility], ) OFFICE OUTPATIENT VISIT 15 MINUTES 01/18/2021 12:00:00 AM EDT [facility] ([facility], ) OFFICE OUTPATIENT NEW 30 MINUTES 10/13/2020 12:00:00 A M EDT [facility] ([facility], ) OFFICE OUTPATIENT NEW 45 MINUTES 10/13/2020 12:00:00 A M EDT [facility] ([facility], ) Brief Individual Psychotherapy - 30 min 07/12/2020 12:00:00 AM EDT - 07/12/2020 12:00:00 AM EDT [facility] ([facility]) Brief Individual Psychotherapy - 30 min 07/12/2020 12: 00:00 AM EDT [facility] ([facility]) Brief Individual Psychotherapy - 30 min 06/02/2020 12:00:00 AM EST - 06/02/2020 12:00:00 AM EST [facility] ([facility]) Brief Individual Psychotherapy - 30 min 06/02/2020 12: 00:00 AM EST [facility] ([facility]) Extended Individual Psychotherapy - 45 min 05/28/2020 12:00:00 AM EST - 05/28/2020 12:00:00 AM EST [facility] ([facility]) Extended Individual Psychotherapy - 45 min 12:00:00 AM EST [facility] ([facility]) Extended Individual Psychotherapy - 45 min 05/21/2020 12:00:00 AM EST - 05/21/2020 12:00:00 AM EST [facility] ([facility]) Extended Individual Psychotherapy - 45 min 12:00:00 AM EST [facility] ([facility]) Extended Individual Psychotherapy - 45 min 05/07/2020 12:00:00 AM EST - 05/07/2020 12:00:00 AM EST [facility] ([facility]) Extended Individual Psychotherapy - 45 min 12:00:00 AM EST [facility] ([facility]) Extended Individual Psychotherapy - 45 min 04/13/2020 12:00:00 AM EST - 04/13/2020 12:00:00 AM EST [facility] ([facility]) Extended Individual Psychotherapy - 45 min 0 12:00:00 AM EST [facility] ([facility]) Extended Individual Psychotherapy - 45 min 03/01/2020 12:00:00 AM EST - 03/01/2020 12:00:00 AM EST [facility] ([facility]) Extended Individual Psychotherapy - 45 min 0 12:00:00 AM EST [facility] ([facility]) Extended Individual Psychotherapy - 45 min 02/17/2020 12:00:00 AM EDT - 02/17/2020 12:00:00 AM EDT [facility] ([facility]) Extended Individual Psychotherapy - 45 min 0 12:00:00 AM EDT [facility] ([facility]) Extended Individual Psychotherapy - 45 min 02/02/2020 12:00:00 AM EDT - 02/02/2020 12:00:00 AM EDT [facility] ([facility]) Extended Individual Psychotherapy - 45 min 12:00:00 AM EDT [facility] ([facility]) Results ID Date Data Source [id number] 01/01/2021 07:27:00 AM EDT [facility] Name Value Range Interpretation Code Description Data Daniela rce(s) Supporting Document(s) SARS COVID ANTIGEN NEGATIVE [place] This lab was ordered by [facility] nd reported by [facility]. ID Date Data Source [id number] 12/14/2020 09:48:00 PM EDT [facility] 1 OrderSheet [facility] Emergency Department [address] [place] [address] Phone #: ext- [phone] 12/14/2020 21:47 Patient: ALEXSANDER BAIN Sex: M : 2000 Age: 20yWEIGHT:56.6 kg (S) HEIGHT:68 inches (S) BMI:19.0ALLERGIES: CephtinCHIEF COMPLAINT: flank pain:, LtDIAGNOSIS: Flank painLAB ORDERSOrder Description Priority Entered Acknowledged InitialedUrinalysis (Clean STAT 22:00 12/14/2020 22:15 Yojana Morales) Francesca Iglesias R.N. ;DIAGNOSTIC STUDY ORDERSOrder Description Priority Entered Acknowledged InitialedMEDICATION/IV/DRIP/FLUID ORDERSOrder Description Priority Entered Acknowledged InitialedGENERAL ORDERSOrder Manjinder cription Priority Entered Acknowledged Initialed[Electronically signed by Katherin Morales R.N. (23:43 12/14/2020)][Electronically signed by Francesca Iglesias (03:39 08/2 08/2020)][Electronically locked by Katherin Morales R.N. (23:43 12/14/2020)] Name Value Range Interpretation Code Description Data Daniela rce(s) Supporting Document(s) ID Date Data Source [id number] 12/14/2020 09:48:00 PM EDT [facility] 1 Medication Reconciliation Report [facility] Emergency Department [address] [place] [address] Phone #: ext- [phone] 12/14/2020 21:47 Patient: ALEXSANDER BAIN Sex: M : 2000 Age: 20yWeight: 56.6 kgHeight/Length: 68 in.BMI: 19.0ALLERGIES: CephtinThe patient's Home Medications are listed below:NONE.The source(s) of the original Home Medication information:Not obtained.The following Medications were given to the patient in the Emergency Department:None.The following Medications were prescribed to the patient:IBU 600 mg tablet Take 1 tablet four times a day for 7 days -- as needed for pain. Dispense 28 tablet.Refills: 0. Substitution permitted.Pharmacy - [id number] - [id number] [place] [address]. FaxNumber: . -- Francesca Iglesias Name Value Range Interpretation Code Description Data Daniela rce(s) Supporting Document(s) ID Date Data Source [id number] 12/14/2020 09:48:00 PM EDT [facility] 1 Medication Administration Record [facility] Emergency Department [address] [place] [address] Phone #: ext [phone] 12/15/19 21:47 Patient: ALEXSANDER BAIN Sex: M : 2000 Age: 20yWeight: 56.6 kgHeight/Length: 68 inBMI: 19ALLERGIES: CephtinDate/Time Medication Administered Medication Ordered Name Value Range Interpretation Code Description Data Daniela rce(s) Supporting Document(s) ID Date Data Source [id number] 12/14/2020 09:48:00 PM EDT [facility] 1 General Instructions [facility] Emergency Department [address] [place] [address] Phone #: ext [phone] 12/14/2020 21:47 Patient: ALEXSANDER BAIN Sex: M : 2000 Age: 20yChronic right and left flank painINSTRUCTIONS(the urinalysis was normal and did not show infection. your flank pain is most likely muscular in origin).Your Current Medications: .No home medication.Prescription Medications:IBU 600 mg tablet Take 1 tablet four times a day for 7 days -- as needed for pain. Dispense 28 tablet.Refills: 0. Substitution permitted.Pharmacy - [id number] - [id number] [facility] ; [place] [address]. FaxNumber: .Follow-up:Follow up with your healthcare provider tomorrow if not better. Reason for referral: evaluation. Summary ofcare provided to patient via paper.Follow-up with: [email or web address], , , [address] [place], [address] Follow up in three days if not better. Reason for referral: evaluation. Summary of care provided to patientvia paper. ADDITIONAL INFORMATIONFlank Pain with Uncertain CauseThe flank is the area between your upper belly (abdomen) and your back. Pain there is often causedby a problem with your kidneys. It might be a kidney infection or a kidney stone. Other causes of flankpain include spinal arthritis, a pinched nerve from a back injury, a rib injury, a bruise, a back musclestrain, inflammation, or spasm.The cause of your flank pain is not certain. You may need other tests.Home care 2 General Instructions [facility] Emergency Department [address] [place] [address] Phone #: ext- [phone] 12/14/2020 21:47 Patient: ALEXSANDER BAIN Sex: M : 2000 Age: 20yFollow these tips when caring for yourself at home: You may use acetaminophen or ibuprofen to control pain, unless your healthcare provider prescribed another medicine. If you have chronic liver or kidney disease, talk with your provider before taking these medicines. Also talk with your provider first if you've ever had a stomach ulcer or digestive bleeding. If the pain is coming from your muscles, you may get relief with ice or heat. During the first 2 days after the injury, put an ice pack on the painful area for 20 minutes every 2 to 4 hours. This will reduce swelling and pain. A hot shower, hot bath, or heating pad works well for a muscle spasm. You can start with ice, then switch to heat after 2 days. You might find that alternating ice and heat works well. Use the method that feels the best to you.Follow-up careFollow up with your healthcare provider if your symptoms don't get better over the next few days.When to seek medical adviceCall your healthcare provider right away if any of these happen: Re peated vomiting Fever of 100.4F (38C) or higher, or as directed by your healthcare provider Flank pain that gets worse Pain that spreads to the front of your belly (abdomen) Dizziness, weakness, or fainting Blood in your urine Burning feeling when you urinate or the need to urinate often Pain in one of your legs that gets worse Numbness or weakness in a leg 8340-1501 [employer]. [address] [place] [address], [place] [address]. All rights reserved. This information is not intended as asubstitute for professional medical care. Always follow your healthcare professional's instructions. You have been given the following additional information: Flank Pain, Uncertain Cause 3 General Instructions [facility] Emergency Department [address] [place] [address] Phone #: ext- [phone] 12/14/2020 21:47 Patient: ALEXSANDER BAIN Sex: M : 2000 Age: 20y(Electronically signed by Francesca Iglesias 12/15/2020 03:39) Name Value Range Interpretation Code Description Data Daniela rce(s) Supporting Document(s) ID Date Data Source [id number] 12/14/2020 09:48:00 PM EDT [facility] 1 Clinical Report - Nurses [facility] Emergency Department [address] [place] [address] Phone #: ext- [phone] 12/14/2020 21:47 Patient: ALEXSANDER BAIN Sex: M : 2000 Age: 20yTRIAGEArrived by private vehicle. Historian: patient. 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 SEPSIS SCREEN NEGATIVE. No suspected or confirmedsigns of infection present. --22:00 12/14/20 Georges Brown21:53 12/14/20. BP: 116/93. HR: 64. RR: 18. O2 saturation: 100%. Temp: 98.0 F. Pain level now 5/10.--22:00 12/14/20 Georges Brown.Weight: 56.6 kg stated. Height/Length: 68 inches Per Patient. BMI: 19. --21:58 12/14/20 Georges Brown.MedicationsNone. --21:55 12/14/20 Georges Brown.AllergiesCephtin. --21:55 Georges Brown.HistorySOCIAL HX: Current some days smoker (electronic cigarrettes). Occasional drug use: marijuana. Noalcohol use. He was offered HIV testing but declined and hepatitis C testing but declined. He has nottraveled outside the [place]Infectious disease exposure: No infectious disease exposure. The patient was not exposed to Hepatitis A,B and C or Coronavirus.SELF HARM ASSESSMENT: Self harm assessment was performed. The patient was asked "Do you havea plan for harming or killing yourself?" and "Have you recently had thoughts about harming or killingothers?". The patient answered "no" to the question(s) "Have you recently felt down, depressed, orhopeless?" and "Do you have thoughts of harming or killing yourself?".ABUSE ASSESSMENT: No report of abuse. 2 Clinical Report - Nurses [facility] Emergency Department [address] [place] [address] Phone #: ext- [phone] 12/14/2020 21:47 Patient: ALEXSANDER BAIN Sex: M : 2000 Age: 20y NUTRITIONAL RISK ASSESSMENT: The nutritional risk assessment revealed no deficiencies. FUNCTIONAL ASSESSMENT: Functional assessment: no impairments noted. LEARNING NEEDS ASSESSMENT: The learning needs assessment revealed no barriers. FALL RISK ASSESSMENT: Fall risk assessment completed. No risk factors identified. SKIN INTEGRITY ASSESSMENT: Skin integrity risk assessment completed. No skin integrity risk identified. --22:00 12/14/20 Georges Brown. Interventions Identification band on patient. --22:00 12/14/20 eGorges Brown.PHYSICAL ASSESSMENTGENERAL / NEURO / PSYCH: Alert. Oriented X 4. Appears in no acute distress.HEENT: Mucous membranes are pink.RESPIRATORY: Respirations not labored. Breath sounds within normal limits.CVS: Normal heart rate and rhythm. Capillary refill less than 2 seconds.GI / : Abdomen soft and nontender. Bowel sounds within normal limits. Pain with urination. CVAtenderness.SKIN: Skin is warm and dry. --22:01 12/14/20 Georges Brown.NURSING PROGRESS NOTESPatient gowned. Reassurance given. Two patient identifiers checked. Call light placed in reach. Siderails up x 2. Bed placed in lowest position. Brakes of bed on. Patient ready for evaluation- ED physiciannotified. --22:12/14/20 Georges Brown Patient ID band checked for patient name and birthdate: patient confirmed. Instructions provided to collect clean catch urine and patient verbalized understanding. Clean catch urine collected with return of yellow-colored urine; sample sent to lab for urinalysis. Specimen labeled in the presence of the patient. --22:19 12/14/20 Katherin Morales R.N. Rounding: Pain: assessed pain level. Position: states comfortable. Personal care / toileting: denies toileting needs. Proximity of possessions / care items: call light within easy reach. Plug ins: checked status of equipment in use. Set expectations: advised patient of rounding protocol timing and asked if they needed anything else at this time. --23:18 12/14/20 Katherin Morales R.N.DISPOSITION / DISCHARGE Condition at departure: improved. No learning barriers present. Reviewed medication(s). Treatments reviewed. The patient was discharged by the physician. He was discharged home. He left ambulatory and via private vehicle. Patient driving. --23:43 12/14/20 Katherin Morales R.N. 23:41 12/14/20. BP: 114/64. MAP: 80. HR: 68. RR: 14. O2 saturation: 100%. Temp: 98.2 F. Pain level 3 Clinical Report - Nurses [facility] Emergency Department [address] [place] [address] Phone #: ext- [phone] 12/14/2020 21:47 Patient: ALEXSANDER BAIN Sex: M : 2000 Age: 20y now: 07/31. --23:43 12/14/20 Katherin Morales R.N.Locked/Released at 12/14/2020 23:43 by Katherin Morales R.N. Name Value Range Interpretation Code Description Data Daniela rce(s) Supporting Document(s) ID Date Data Source [id number] 12/14/2020 09:48:00 PM EDT [facility] 1 Clinical Report - Physicians/Mid Levels [facility] Emergency Department [address] [place] [address] Phone #: ext- [phone] 12/14/2020 21:47 Patient: ALEXSANDER BAIN Sex: M : 2000 Age: 20y Time Seen: 22:00 12/14/2020; initial patient contact, initial documentation. Arrived- By private vehicle. Historian- patient. Disposition decision: 23:23 12/14/2020.HISTORY OF PRESENT ILLNESS Chief Complaint: LEFT FLANK PAIN. 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 The problem is described as moderate. No penile discharge, discomfort with urination, urinary frequency, genital lesion or testicular pain. No urgency of urination, Contreras catheter problem, inguinal swelling or problem with the foreskin. The patient has had flank pain. Able to void. Not voiding only small amounts. Sexual history is noncontributory.REVIEW OF SYSTEMSNo fever, chills, hematuria, abdominal pain or vomiting. No diarrhea, black stools, headache, blurredvision or chest pain. No difficulty breathing, cough, joint pain, skin rash or back pain. The patient hashad flank pain. All other systems reviewed and are negative.PAST HISTORYSee nurses notes. Additional Surgeries: As a toddler hernia repair and urethra repair, "penis correction surgery". Medications: None. Allergies: Cephtin.SOCIAL HISTORYSmoker- current status unknown (electronic cigarettes). Occasional alcohol use. Occasional drug use:marijuana.ADDITIONAL NOTESThe nursing notes have been reviewed.PHYSICAL EXAMVital Signs: 12/14/2020 21:53 BP: 116/93. MAP: 100. HR: 64. RR: 18. O2 saturation: 100%. Temp: 98.0F. Have been reviewed. Oxygen saturation normal.Appearance: Alert. Oriented X3. No acute distress.ENT: Normal external inspection.CVS: Heart sounds normal.Respiratory: No respiratory distress. Painless inspiration.Abdomen: Soft and nontender. Bowel sounds normal. No organomegaly. No mass. Femoral pulses 2 Clinical Report - Physicians/Mid Levels [facility] Emergency Department [address] [place] [address] Phone #: ext- [phone] 12/14/2020 21:47 Patient: ALEXSANDER BAIN Sex: M : 2000 Age: 20y equal. Back: Mild CVA tenderness on the right and left. Normal external inspection. Skin: Skin warm and dry. Normal skin color. No rash. Normal skin turgor. Extremities: Extremities exhibit normal ROM. No lower extremity edema. Neuro: Oriented X 3. No motor deficit. No sensory deficit. Reflexes normal.LABS, X-RAYS, AND EKGLaboratory Tests: Urinalysis: (ZUHAIR: 12/14/2020 22:14) ( MsgRcvd 12/14/2020 22:54) Final results Test Result Flag Units (Reference) URINALYSIS URINALYSIS SOURCE R COLOR yellow (NORMAL: Yello CLARITY clear (NORMAL: Clear SPEC GRAVITY 1.010 (1.001 - 1.030 pH 6.5 (5 - 9) GLUCOSE NORM (NORMAL: Negat BILIRUBIN NEG (NORMAL: Negat KETONE NEG (NORMAL: Negat PROTEIN NEG (NORMAL: Negat NITRITE NEG (NORMAL: Negat BLOOD NEG (NORMAL: Negat LEUK EST NEG (NORMAL: Negat UROBILINOGEN NOR (less than 1.0 MICROSCOPIC Not Indicate.PROGRESS AND PROCEDURESCourse of Care: 23:11 12/14/20. trina has normal urinalysis. will discharge him home with motrin. Patient counseled in person regarding the patient's stable condition and need for follow-up. Patient agrees with plan of care. 23:23. Disposition: Discharged home in good and improved condition (23:23). Condition: good and stable. Discharge decision based on the following: patient's condition is stable; patient is ambulatory; patient's exam is stable; no abnormal test results; stable condition on repeat evaluation; social support is adequate; transportation is available; follow-up is available; clinical impression is consistent with outpatient treatment.CLINICAL IMPRESSION Chronic right and left flank painINSTRUCTIONS 3 Clinical Report - Physicians/Mid Levels [facility] Emergency Department [address] [place] [address] Phone #: ext- [phone] 12/14/2020 21:47 Patient: ALEXSANDER BAIN Sex: M : 2000 Age: 20 y (the urinalysis was normal and did not show infection. your flank pain is most likely muscular in origin). Your Current Medications: . No home medication. Prescription Medications: IBU 600 mg tablet Take 1 tablet four times a day for 7 days -- as needed for pain. Dispense 28 tablet. Refills: 0. Substitution permitted. Pharmacy - [facility] - [id number] [facility] ; [place] [address]. . Follow-up: Follow up with your healthcare provider tomorrow if not better. Reason for referral: evaluation. Summary of care provided to patient via paper. Follow-up with: [email or web address], , , [address] [facility], [place], [address] Follow up in three days if not better. Reason for referral: evaluation. Summary of care provided to patient via paper.(Electronically signed by Francesca Iglesias 12/15/2020 03:39) Name Value Range Interpretation Code Description Data Daniela rce(s) Supporting Document(s) ID Date Data Source [id number] 12/14/2020 10:54:00 PM EDT [facility] Name Value Range Interpretation Code Description Data Daniela rce(s) Supporting Document(s) [facility] SOURCE R [facility] COL[facility] yellow NORMAL: [facility] ospital CLARITY clear NORMAL: Clear [facility] Ho spital Specific gravity of Urine by Test strip 1.010 1.001 - 1.030 [facility] pH 6.5 5 - 9 [facility] al Glucose [Mass/volume] in Urine by Test strip NORM NORMAL: Negat [facility] Bilirubin.total [Presence] in Urine by Test strip NEG NORMAL: Negative [facility] Ketones [Presence] in Urine by Test strip NEG NORMAL: Negative [facility] Protein [Mass/volume] in Urine by Test strip NEG NORMAL: Negat [facility] Nitrite [Presence] in Urine by Test strip NEG NORMAL: Negative [facility] BLOOD NEG NORMAL: Negative [facility] LEUK EST NEG NORMAL: Negative [facility] Urobilinogen [Mass/volume] in Urine by Test strip NOR less veronica n 1.0 mg/dL [facility] MICROSCOPIC Not Indicate [facility] H ospital ID Date Data Source [id number] 06/14/2020 02:05:00 PM EST [facility] [address] [place] [address] PHONE: [phone] FAX: [phone] Name .................. : ODELL Devine Acct Number.................. : [id number] ROOM. ................. : [facility] MR Number ................... : [id number] Stay type ............. : E/R Discharge Date......... ... : 06/12/20 Admit Date ......... : 06/12/20 Admit Phys .................... : COONEYNORM Date of ....... : 2000 Family Phys ................... : NO PCP Phone .................. : [phone] Age ................................ : 20 Film# .................. .:[id number] Sex ................................. : M Unsigned transcriptions are preliminary reports and do not represent a medical or legal document HAND COMPLETE-3 OR MORE S R [id number] COMPLETE:06/12/20 21:01 RLB [id number] Reason(s): Pain RIGHT HAND X-RAY: CLINICAL HISTORY: 20-year-old male with right hand pain. TECHNIQUE: Multiple views of the right hand are obtained. FINDINGS: No acute bony abnormality is seen. No obvious abnormality of the soft tissues is seen. There is an old ulna styloid fracture versus a normal bony variation. IMPRESSION: No acute fracture of the right hand is seen. No obvious abnormality of the soft tissues is seen. Electronically Reviewed and Signed By Jeff Fitch MD , 06/14/20 14:05, J Transcribe Initials: DZ , Transcribe Date: 06/12/20 23:19, Dictation Date: Copy for: [facility] via fax Copy for: EMERGENCY DEPT via modem Copy for: 710 MED REC DISCHARGED Page 1 of 1 Name Value Range Interpretation Code Description Data Daniela rce(s) Supporting Document(s) ID Date Data Source [id number] 06/12/2020 07:14:00 PM EST [facility] 1 OrderSheet [facility] Emergency Department [address] [place] [address] Phone #: ext- [phone] 06/12/2020 19:13 Patient: ALEXSANDER BAIN Sex: M : 2000 Age: 20yWEIGHT:55.3 kg HEIGHT:68 inches BMI:18.5ALLERGIES: CephtinCHIEF COMPLAINT: Rt, thumbDIAGNOSIS: Sprain of jointLAB ORDERSOrder Description Priority Entered Acknowledged InitialedDIAGNOSTIC STUDY ORDERSOrder Description Priority Entered Acknowledged InitialedHand Complete STAT 19:32 06/12/2020 Ack'd: 19:34 20:20 Sydnie,Bing Peters(Oxygen?(No)) P.A.-C; Reason for Study: Pain, Trauma/InjuryMEDICATION/IV/DRIP/FLUID ORDERSOrder Description Priority Entered Acknowl edged InitialedToradol IM 30 mg 19:32 06/12/2020 Ack'd: 19:34 19:37 Dayo Otoole Katelyn Katelyn P.A.- C;Tylenol 1 g PO X1 19:32 06/12/2020 Ack'd: 19:34 19:37 Sydnie,dose: 1000 mg Bing Youssef(NOW x1) P.A.-C;Cyclobenzaprine 20:35 06/12/2020 Ack'd: 20:38 20:41 Sydnie,PO 5 mg Bing Youssef P.A.-C;GENERAL ORDERSOrder Description Priority Entered Acknowledged InitialedAce Wrap 20:35 06/12/2020 20:38 Dayo Otoole P.A.-C;Splint (UE) (Right) 20:35 06/12/2020 20:38 Sydnie,(Dorsal) (Leeanne Dickisnon) (Soup Ladrhonda P.A.-C;looking)[Electronically signed by Bing Otoole (20:46 06/12/2020)] 2 OrderSheet [facility] Emergency Department [address] [place] [address] Phone #: [phone]- [phone] 06/12/2020 19:13 Patient: ALEXSANDER BAIN Sex: M : 2000 Age: 20y[Electronically signed by Dayo CorreaAAlfredo-Sindy (21:38 06/12/2020)][Electronically locked by Bing Otoole (20:46 06/12/2020)] Name Value Range Interpretation Code Description Data Daniela rce(s) Supporting Document(s) ID Date Data Source [id number] 06/12/2020 07:14:00 PM EST [facility] 1 Medication Reconciliation Report [facility] Emergency Department [address] [place] [address] Phone #: ext- [phone] 06/12/2020 19:13 Patient: ALEXSANDER BAIN Sex: M : 2000 Age: 20yWeight: 55.3 kgHeight/Length: 68 in.BMI: 18.5ALLERGIES: CephtinThe patient's Home Medications are listed below:NONE.The source(s) of the original Home Medication information:Not obtained.The following Medications were given to the patient in the Emergency Department:Toradol [IM] IM 30 mg, administered: 19:37 06/12/2020Tylenol [PO] PO 1000 mg, administered: 19:37 06/12/2020yclobenzaprine [PO] PO 5 mg, administered: 20:41 06/12/2020The following Medications were prescribed to the patient:cyclobenzaprine 10 mg tablet Take 1 tablet three times a day for 3 days -- Dispense 9 tablet. Refills: 0.Substitution permitted.Pharmacy - [facility] - [id number] [facility] ; [place] [address]. FaxNumber: . -- Dayo Correa P.A.-C Name Value Range Interpretation Code Description Data Daniela rce(s) Supporting Document(s) ID Date Data Source [id number] 06/12/2020 07:14:00 PM EST [facility] 1 Medication Administration Record [facility] Emergency Department [address] [place] [address] Phone #: ext- [phone] 06/12/2020 19:13 Patient: ALEXSANDER BAIN Sex: M : 2000 Age: 20yWeight: 55.3 kgHeight/Length: 68 inBMI: 18.5ALLERGIES: Cephtin Date/Time Medication Administered Medication OrderedGiven TORADOL [IM] (KETOROLAC Toradol IM 30 mg19:37 06/12/2020 TROMETHAMINE)Bing Otoole, Dose: 30 mg IMGiven TYLENOL [PO] (APAP) Tylenol 1 g PO X1 dose: 1000 mg19:37 06/12/2020 Dose: 1000 mg PO (NOW x1)Bing Otoole,Given CYCLOBENZAPRINE [PO] Cyclobenzaprine PO 5 mg20:41 06/12/2020 Dose: 5 mg POBing Otoole, Name Value Range Interpretation Code Description Data Daniela rce(s) Supporting Document(s) ID Date Data Source [id number] 06/12/2020 07:14:00 PM EST [facility] 1 General Instructions [facility] Emergency Department [address] [place] [address] Phone #: ext- [phone] 06/12/2020 19:13 Patient: ALEXSANDER BAIN Sex: M : 2000 Age: 20ySprain of the interphalangeal joint of the right thumb and proximal interphalangeal joint of the right thumb.INSTRUCTIONSApply ice for 10 minutes three times a day for one weeks followed by dry heat 10 minutes one time a dayfor three days as needed. Wear aluminum splint for one weeks. Wear elastic wrap (Levy wrap) asdirected for one weeks. Limit use of your right hand for one weeks. Do not work for two days.No dietary restrictions.(Recommend to utilize OTC Motrin and Tylenol to control inflammation and pain management.Recommend to follow the instructions on the bottle and not to exceed.Recommend to utilize OTC antibiotic ointment to help control possible skin infection and help promotewound healing and care.).Warnings: SEDATIVE MEDICATION: You were given sedative medication during your visit. Do not driveor operate dangerous machinery.Your Current Medications: .No home medication.Prescription monitor program consulted by me. Prescription does not exceed state maximum supply ofmedicationsPrescription Medications:cyclobenzaprine 10 mg tablet Take 1 tablet three times a day for 3 days -- Dispense 9 tablet. Refills: 0.Substitution permitted.Pharmacy - [id number] - [id number] [facility] ; [place] [address]. Phone: FaxNumber: .Follow-up:Return to the emergency department as needed. Follow up with your healthcare provider in about twodays if not better. Call for an appointment.Understanding of the discharge instructions verbalized by patient.Follow-up with: [facility] [[email or web address], , , [address] [place], [place], [facility] 2 General Instructions [facility] Emergency Dep artment [address] [place] [address] Phone #: ext- [phone] 06/12/2020 19:13 Patient: ALEXSANDER BAIN Sex: M : 2000 Age: 20y Follow up. Call for the next available appointment. Reason for referral: evaluation, treatment and Toestablish care. ADDITIONAL INFORMATIONFinger SprainA sprain is a stretching or tearing of the ligaments that hold a joint together. There are no brokenbones. Sprains take 3 to 6 weeks or more to heal.A sprained finger may be treated with a splint or kyleigh tape. This is when you tape the injured fingerto the one next to it for support. Minor sprains may require no additional support.Home care Keep your hand elevated to reduce pain and swelling. This is very important during the first 48 hours. Apply an ice pack over the injured area for 15 to 20 minutes every 3 to 6 hours. You should do this for the first 24 to 48 hours. You can make an ice pack by filling a plastic bag that seals at the top with ice cubes and then wrapping it with a thin towel. Continue the use of ice packs for relief of pain and swelling as needed. As the ice melts, be careful to avoid getting any wrap or splint wet. After 48 hours, apply heat (warm shower or warm bath) for 15 to 20 minutes several times a day, or alternate ice and heat. If kyleigh tape was applied and it becomes wet or dirty, change it. You may replace it with paper, plastic or cloth tape. Cloth tape and paper tapes must be kept dry. Apply gauze or cotton padding between the fingers, especially at the webbed space. This will help prevent the skin from getting moist and breaking down. Keep the kyleigh tape in place for at least 4 weeks, o r as instructed by your healthcare provider. If a splint was applied, wear it for the time advised. You may use ajkg-emt-plpgrln pain medicine to control pain, unless another pain medicine was prescribed. If you have chronic liver or kidney disease or ever had a stomach ulcer or gastrointestinal bleeding, talk with your healthcare provider before using these medicines.Follow-up careFollow up with your healthcare provider, or as directed. Finger joints will become stiff if immobile fortoo long. If a splint was applied, ask your healthcare provider when it is safe to begin auwie-wa-tnxbfsobmawcist.Sometimes fractures don't show up on the first X-ray. Bruises and sprains can sometimes hurt as 3 General Instructions [facility] Emergency Department [address] [place] [address] Phone #: ext- [phone] 06/12/2020 19:13 Patient: ALEXSANDER BAIN Sex: M : 2000 Age: 20ymuch as a fracture. These injuries can take time to heal completely. If your symptoms don't improveor they get worse, talk with your healthcare provider. You may need a repeat X-ray. If X-rays weretaken, you will be told of any new findings that may affect your care.When to seek medical adviceCall your healthcare provider right away if any of these occur: Pain or swelling increases Fingers or hand becomes cold, blue, numb, or tingly [id number] [employer]. [address] [place] [address]. All rights reserved. This information is not intended as asubstitute for professional medical care. Always follow your healthcare professional's instructions.Splints and CastsSplints and casts are used to help support and protect many bone and soft tissue injuries. They keepan injured area from moving.Both splints and casts can help fix broken bones and other injuries or conditions by: Increasing blood supply to the injured area Limiting movement to help decrease pain Keeping the area stable to help prevent further injury Decreasing swelling or muscle spasmSplints don't fully enclose an injured area. This makes them ideal to use for many acute or suddeninjuries where swelling is likely to occur. This includes acute fractures or sprains. Splints help to easepain, protect fractures, and keep an injured area from moving before any orthopedic treatment isdone.Casts fully enclose an injured area in either plaster or fiberglass. Because of this, they are better ableto keep the injured area still and hold it in place. But casts can also have more problems.For the best results, both casts and splints are mainly used only for a short time. That's becausekeeping an area still for too long can cause problems such as joint stiffness and long-lasting (chronic)pain. If you are put in a splint or cast, you must be watched closely to be sure you recover correctly.There are many different kinds of splints and casts. Your healthcare provider will decide which is bestfor you. This will depend on the area of your body that is being treated. It will also depend on thestage of your injury, as well as how severe and how stable it is. Each type of splint and cast is bestsuited for certain conditions. There are also different ways of applying splints and casts. 4 General Instructions [facility] Emergency Department [address] [place] [address] Phone #: ext- [phone] 06/12/2020 19:13 Patient: ALEXSANDER BAIN [facility]#: [id number] Sex: M : 2000 Age: 20yHome care Follow your healthcare provider's instructions when using the splint or cast. Always ask when the splint or cast must be worn. Always ask when the splint or cast can be removed. Check the splint or cast each day, and as needed, for any loose objects. Check the splint or cast for defects such as nicks or tears. Follow the furniture fabricator's or provider's instructions on how to clean the splint or cast. It may have fabric areas that can be washed. If the splint or cast has straps, tighten the straps if they get loose. The straps should feel firm and secure, but not too tight. The splint or cast should feel comfortable. Your toes should wiggle freely. The provider may also use an elastic bandage. Follow the provider's instructions on how to use the elastic bandage. Always ask when to use the elastic bandage with, or without, the splint or cast. Always ask when the elastic bandage needs to be worn. Always ask when the elastic bandage needs to be removed. Check how the injured area is healing. Always check the skin around the injury for irritation or damage caused by the splint or cast. Call your provider if you notice any problems or have any concerns. If you have any questions on how to use the splint or cast, contact your provider.Follow-up careFollow up as advised with your healthcare provider. Depending on the injury, you may need to see anorthopedic or bone doctor. You may also need physical therapy to further check or treat your injury orcondition.When to seek medical adviceCall your healthcare provider right away if any of these occur: You have more pain, swelling, or instability when wearing the splint or cast. Your injured area has skin that changes color (to red, blue, or purple), sores, blisters, infection, or irritation. The injured region feels cool to the touch. Or you have a numb and tingly feeling when wearing the splint or cast. The splint or cast does not fit correctly. 5 General Instructions [facility] Emergency Department [address] [place] [address] Phone #: ext- [phone] 06/12/2020 19:13 Patient: ALEXSANDER BAIN Sex: M : 2000 Age: 20y You can't put weight on the injured area when wearing the splint or cast if you are allowed to do so. You have questions about using the splint or cast. The splint or cast gets wet. 200 0 [employer]. [address] [place] [address]. All rights reserved. This information is not intended as asubstitute for professional medical care. Always follow your healthcare professional's instructions.LEVY WrapMinor muscle or joint injuries are often treated with an elastic bandage. The bandage providessupport and compression to the injured area. An elastic bandage is a stretchy, rolled bandage. Elasticbandages range in width from 2 to 6 inches. They can be used for a variety of injuries. The bandagesare often called LEVY bandages, after the most common brand name.If used correctly, elastic bandages help control swelling and ease pain. An elastic bandage is also agood reminder not to overuse the injured area. However, elastic bandages do not provide a lot ofsupport and will not prevent reinjury.Home care To apply an elastic bandage: Check the skin before wrapping the injury. It should be clean, dry, and free of drainage. Start wrapping below the injury and work your way toward the body. For an ankle sprain, start wrapping around the foot and work up toward the calf. This will help control swelling. 6 General Instructions [facility] Emergency Department [address] [place] [address] Phone #: ext- [phone] 06/12/2020 19:13 Patient: ALEXSANDER BAIN Sex: M : 2000 Age: 20y Overlap the edges of the bandage so it stays snuggly in place. Wrap the bandage firmly, but not too tightly. A tight bandage can increase swelling on either end of the bandage. Make sure the bandage is wrinkle free. Leave fingers and toes exposed. Secure ends of the bandage (even self-sticking ones) with clips or tape. Check often to be sure there is good circulation, especially in the fingers and toes. Loosen the bandage if there is local swelling, numbness, tingling, discomfort, coldness, or discoloration (skin pale or bluish in color). Rewrap the bandage as needed during the day. Reroll the bandage as you unwind it.Continue using the elastic bandage until the pain and swelling are gone or as your healthcareprovider advises.If you have been told to ice the area, the ice can be secured in place with the elastic bandage. Wrapthe ice pack with a thin towel to protect the skin. Don't put ice or an ice pack directly on the skin. Icethe area for no more than 20 minutes at a time.Follow-up careFollow up with your healthcare provider, or as advised.When to seek medical adviceCall your healthcare provider for any of the following: Pain and swelling that doesn't get better or gets worse Trouble moving injured area Skin discoloration, numbness, or tingling that doesn't go away after bandage is removed [id number] [employer]. [address] [place] [address]. All rights reserved. This information is not intended as asubstitute for professional medical care. Always follow your healthcare professional's instructions. You have been given the following additional information: Finger Sprain Splints and Casts LEVY Wrap 7 General Instructions [facility] Emergency Department [address] [place] [address] Phone #: ext- [phone] 06/12/2020 19:13 Patient: ALEXSANDER BAIN Sex: M : 2000 Age: 20yLimit use of your right hand for one weeks. Do not work for two days.(Electronically signed by Dayo Correa P.A.-C 06/12/2020 21:38) Name Value Range Interpretation Code Description Data Daniela rce(s) Supporting Document(s) ID Date Data Source [id number] 06/12/2020 07:14:00 PM EST [facility] 1 Clinical Report - Nurses [facility] Emergency Department [address] [place] [address] Phone #: ext- [phone] 06/12/2020 19:13 Patient: ALEXSANDER BAIN Sex: M : 2000 Age: 20yTRIAGEArrived by private vehicle. Historian: patient.Acuity: LEVEL 4.Chief Complaint: INJURY TO RIGHT HAND. INJURY TO THE RIGHT HAND and RIGHT THUMB.Alert. No acute distress.Occurred at home. Occurred 23:30 06/11/2020. ( PT said last night he was using a putty blintze roller andgot angry and slammed it down into the bucket and injured his right hand. He has has a superficial cut tohis right thumb and he says "it felt like a nerve shredded in my hand". 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 SEPSIS SCREEN NEGATIVE. No suspected or confirmedsigns of infection present.CALLIE COMA SCORE: 15- eyes open- spontaneous (4); best verbal response- oriented (5); bestmotor response- obeys commands (6). --19:27 06/12/20 Shima Schaefer R.N.19:18 06/12/20. BP: 126/65. MAP: 85. HR: 77. RR: 16. O2 saturation: 100%. Temp: 98.2 F. Pain levelnow: 09/30. --19:27 06/12/20 Shima Schaefer R.N.Weight: 55.3 kg. Height/Length: 68 inches. BMI: 18.5. --19:25 06/12/20 Shima Schaefer R.N.MedicationsNone. --19:23 06/12/20 Shima Schaefer R.N.AllergiesCephtin. --19:23 06/12/20 Shima Schaefer R.N.HistoryPAST MEDICAL HX: Last tetanus: (2 years ago).SOCIAL HX: Light tobacco smoker (cigarette)- less than 1/2 a pack per day. Drug use: marijuana.Recently used drugs today. No alcohol use. He was offered HIV testing but declined and hepatitis Ctesting but declined.SELF HARM ASSESSMENT: Self harm assessment was performed. The patient answered "no" to thequestion(s) "Have you recently felt down, depressed, or hopeless?", "Do you have thoughts of harming or 2 Clinical Report - Nurses [facility] Emergency Department [address] [place] [address] Phone #: ext- [phone] 06/12/2020 19:13 Patient: ALEXSANDER BAIN Sex: M : 2000 Age: 20y killing yourself?", "Do you have a plan for harming or killing yourself?", "Have you recently had thoughts about harming or killing others?", "Do you have any dangerous items in your possession?", "Have you noticed less interest or pleasure in doing things?", "Are you here because you tried to hurt yourself?" and "Have you ever tried to hurt yourself before today?". ABUSE ASSESSMENT: No report of abuse. NUTRITIONAL RISK ASSESSMENT: The nutritional risk assessment revealed no deficiencies. FUNCTIONAL ASSESSMENT: Functional assessment: no impairments noted. LEARNING NEEDS ASSESSMENT: The learning needs assessment revealed no barriers. FALL RISK ASSESSMENT: Fall risk assessment completed. No risk factors identified. SKIN INTEGRITY ASSESSMENT: Skin integrity risk assessment completed. No skin integrity risk identified. --06/12/20 Shima Schaefer R.N. SOCIAL HX: The patient has not traveled outside the [place] Infectious disease exposure: No infectious disease exposure. The patient was not exposed to C-diff, MRSA, VRE, CRE or Coronavirus. --06/12/20 Shima Schaefer R.N. Interventions Identification band on patient. To treatment room. --06/12/20 Shima Schaefer R.N.PHYSICAL ASSESSMENTAmbulatory to room.GENERAL / NEURO / PSYCH: Oriented X 4. Alert. Appears in no acute distress.EXTREMITIES: Capillary refill is less than 2 seconds in the extremities. Extremity pulses are withinnormal limits. Extremities exhibit normal ROM. Neuro-vascular status intact to the extremity. Dorsalright hand: tenderness, ecchymosis and superficial laceration. Right thumb: ecchymosis and superficiallaceration.SKIN: Skin intact. Skin is warm and dry. --19:31 06/12/20 Bing Otoole.NURSING PROGRESS NOTESPatient gowned. Reassurance given. Two patient identifiers checked. Call light placed in reach. Bedplaced in lowest position. Brakes of bed on. Patient ready for evaluation- PA notified. --:06/12/20Shima Schaefer R.N. 19:37 06/12/2020 Toradol (Ketorolac Tromethamine) IM 30 mg given. Given in the right deltoid. Allergies verified and confirmed 5 rights. Information reviewed with patient including reason for taking this medication, signs of allergic reaction and precautions. Verbalizes understanding . --19:37 06/12/20 Bing Otoole 3 Clinical Report - Nurses [facility] Emergency Department [address] [place] [address] Phone #: ext- [phone] 06/12/2020 19:13 Patient: ALEXSANDER BAIN Sex: M : 2000 Age: 20y 19:37 06/12/2020 Tylenol (APAP) PO 1000 mg given. Allergies verified and confirmed 5 rights. Information reviewed with patient including reason for taking this medication, signs of allergic reaction and precautions. Verbalizes understanding. --19:37 06/12/20 Bing Otoole 19:59 06/12/20. BP: 114/61. MAP: 78. HR: 74. RR: 16. O2 saturation: 99%. 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 Patient walked to radiology with mask and tech. --20:19 06/12/20 Bing Otoole Patient walked back from radiology with mask and tech. --20:19 06/12/20 Bing Otoole Reassurance given. Rounding: Pain: assessed pain level. Position: states comfortable. Personal care / toileting: denies toileting needs. Proximity of possessions / care items: call light within easy reach. Plug ins: assured IV pump plugged in; checked status of equipment in use; located all cords, tubes, and lines to prevent fall hazard. --20:20 06/12/20 Bing Otoole 4 inch levy bandage applied to right wrist and right hand; distal pulses intact, sensation intact and motor function within normal limits (over leeanne wendy splint). Short arm splint applied to right wrist and hand. Distal pulses intact, sensation intact and motor within normal limits. Patient tolerated the procedure well. Splinting applied by me. --20:39 06/12/20 Bing Otoole 20:41 06/12/2020 Cyclobenzaprine PO 5 mg given. Allergies verified and confirmed 5 rights. Information reviewed with patient including reason for taking this medication, signs of allergic reaction, precautions and sedative warning. Verbalizes understanding. --20:41 06/12/20 Bing Otoole.DISPOSITION / DISCHARGE Condition at departure: improved. No learning barriers present. Discharge instructions provided and reviewed with the patient. Reviewed warnings. Reviewed medication(s). Treatments reviewed. Activity restrictions reviewed. Work note given. Patient verbalized understanding. Written instructions provided in [place]. The patient was discharged by the physician occupational therapy assistant. He was discharged home and unaccompanied at time of discharge. He left ambulatory and via private vehicle. 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 --20:45 06/12/20 Bing Otoole 20:44 06/12/20. BP: 106/58. MAP: 74. HR: 58. RR: 15. O2 saturat ion: 97%. Temp: 97.7 F. Pain level now: 05/02. --20:45 06/12/20 Bing Otoole Departure time: 20:46 06/12/2020. --20:46 06/12/20 Bing Otoole. 4 Clinical Report - Nurses [facility] Emergency Department [address] [place] [address] Phone #: ext- [phone] 06/12/2020 19:13 Patient: ALEXSANDER BAIN Sex: M : 2000 Age: 20yLocked/Released at 06/12/2020 20:46 by Bing Otoole Name Value Range Interpretation Code Description Data Daniela rce(s) Supporting Document(s) ID Date Data Source [id number] 06/12/2020 07:14:00 PM [facility] 1 Clinical Report - Physicians/Mid Levels [facility] Emergency Department [address] [place] [address] Phone #: ext- [phone] 06/12/2020 19:13 Patient: ALEXSANDER BAIN Sex: M : 2000 Age: 20y Time Seen: 19:27 06/12/2020; initial patient contact, initial documentation. Arrived- By private vehicle. Historian- patient. Disposition decision: 20:35 06/12/2020.HISTORY OF PRESENT ILLNESS Chief Complaint: Injury to the right thumb. The injury happened yesterday. The patient sustained a direct blow. Occurred at home. Patient is experiencing mild pain. No injury to the head or other injury. ( PT said last night he was using a putty blintze roller and got angry and slammed it down into the bucket and injured his right hand. He has has a superficial cut to his right thumb and he says "it felt like a nerve shredded in my hand". The pain radiates up his arm and he has limited ROM in his thumb).REVIEW OF SYSTEMSThe patient has had swelling. No tingling, numbness, weakness, foreign body or skin laceration. Allother systems reviewed and are negative.PAST HISTORYSee nurses notes. The patient's dominant hand is the right. Tetanus immunization status is up-to-date. Problems: Bipolar I disorder. Anxiety Reaction. ADHD. OCD. Skin Avulsion. Sinusitis. PTSD. Additional Surgeries: As a toddler hernia repair and urethra repair, "penis correction surgery". Medications: None. Allergies: Cephtin.SOCIAL HISTORYLight tobacco smoker- less than 1/2 a pack per day. Drug use: marijuana.ADDITIONAL NOTES 2 Clinical Report - Physicians/Mid Levels [facility] Emergency Department [address] [place] [address] Phone #: ext- [phone] 06/12/2020 19:13 [id number] Sex: M : 2000 Age: 20y The nursing notes have been reviewed.PHYSICAL EXAMVital Signs: 06/12/2020 19:18 BP: 126/65. MAP: 85. HR: 77. RR: 16. O2 saturation: 100%. Temp: 98.2 F.Pain level now: 09/30. Have been reviewed. Oxygen saturation normal.Appearance: Alert. Oriented X3. No acute distress.ENT: Voice normal.CVS: Pulses normal. Capillary refill normal. Strong peripheral pulses. Pulses: right radial 2+; left radial2+.Respiratory: No respiratory distress. Unlabored respirations. Good chest movement.Skin: Skin warm and dry.Extremities: Thenar eminence, right hand: mild tenderness and swelling and small abrasion withcontrolled bleeding and ecchymosis. Neurovascular intact distally. (noted small b/l abrasions to the thumbbase.). No erythema, laceration, foreign body or deformity. No puncture wound. No right wrist abnormalityor right hand complaints. No wrist injury. No hand injury. Extremities otherwise negative.Neuro, Vascular and Tendons: Vascular status intact. Sensation intact. Motor intact. Tendon functionintact. (AIN, PIN, R/U/M intact b/l UE. N/V intact. SILT. A/P FROM).Neuro: Awake. Alert. Mood/affect normal. Speech normal. No motor deficit. No sensory deficit.Psych: Cognition normal. Thought process and content normal. Insight and judgement normal.LABS, X-RAYS, AND EKGRt Hand X-ray: No fracture. (No fx noted. CMM). The X-rays were independently viewed by me andinterpreted contemporaneously by me.PROGRESS AND PROCEDURESCourse of Care: VSS, NAD, AOx3, interacting well and appropriately, no use of accessory muscle, able tospeak full sentences, stable, non-toxic looking. Enter room and pt lying peacefully in bed in NAD. Patient stable. Denies any new issues, concerns, or complaints. Enter room and patient lying peacefully in bed in NAD. Patient stable. Denies any new issues, concerns, or complaints. Reviewed results. Discussed with attending. Enter room and patient lying peacefully in bed in NAD. Patient stable. Denies any new issues, concerns, 3 Clinical Report - Physicians/Mid Levels [facility] Emergency Department [address] [place] [address] Phone #: ext- [phone] 06/12/2020 19:13 Patient: ALEXSANDER BAIN Sex: M : 2000 Age: 20y or complaints. Discussed results with pt. Discussed tx plan with pt. Discussed and counseled on stable condition. Discussed importance of a f/u with PCP. Discussed return to ER criteria. Answered their questions. Indicates that they understand, agree, and will comply with above. Denies any new questions or concerns. Patient has capacity to understand. Discharge decision based on the following: patient's condition is stable; patient's exam is stable; social support is adequate; transportation is available; follow-up is available. Discussed of OTC Motrin and Tylenol to control inflammation and pain management. Informed to follow directions on bottle that are appropriate for age and/or weight. Disposition: Discharged home in good and improved condition. Condition: good and stable.CLINICAL IMPRESSION Sprain of the interphalangeal joint of the right thumb and proximal interphalangeal joint of the right thumb.INSTRUCTIONS Apply ice for 10 minutes three times a day for one weeks followed by dry heat 10 minutes one time a day for three days as needed. Wear aluminum splint for one weeks. Wear elastic wrap (Levy wrap) as directed for one weeks. Limit use of your right hand for one weeks. Do not work for two days. No dietary restrictions. (Recommend to utilize OTC Motrin and Tylenol to control inflammation and pain management. Recommend to follow the instructions on the bottle and not to exceed. Recommend to utilize OTC antibiotic ointment to help control possible skin infection and help promote wound healing and care.). Warnings: SEDATIVE MEDICATION: You were given sedative medication during your visit. Do not drive or operate dangerous machinery. Your Current Medications: . No home medication. Prescription monitor program consulted by me. Prescription does not exceed state maximum supply of medications Prescription Medications: 4 Clinical Report - Physicians/Mid Levels [facility] Emergency Department [address] [place] [address] Phone #: [phone] 06/12/2020 19:13 Patient: ALEXSANDER BAIN Sex: M : 2000 Age: 20y cyclobenzaprine 10 mg tablet Take 1 tablet three times a day for 3 days -- Dispense 9 tablet. Refills: 0. Substitution permitted. Pharmacy - [id number] - [id number] [place] [address]. . Follow-up: Return to the emergency department as needed. Follow up with your healthcare provider in about two days if not better. Call for an appointment. Understanding of the discharge instructions verbalized by patient. Follow-up with: [email or web address], , , [address] [place] [address], [facility] Follow up. Call for the next available appointment. Reason for referral: evaluation, treatment and To establish care.(Electronically signed by Dayo Correa P.A.-C 06/12/2020 21:38) Name Value Range Interpretation Code Description Data Daniela rce(s) Supporting Document(s) ID Date Data Source [id number] 04/26/2020 08:30:00 AM BEN [place] ([facility]) Name Value Range Interpretation Code Description Data Daniela rce(s) Supporting Document(s) Hemoglobin A1c/Hemoglobin.total in Blood 5.3 % Hemoglobin a1C [facility] ([facility]) estimated average glucose 105 mg/dL 60-110 Estimated Average Glucose [place] ([facility]) ID Date Data Source [id number] 04/26/2020 08:30:00 AM EST [place] ([facility]) Name Value Range Interpretation Code Description Data Daniela rce(s) Supporting Document(s) color, urine straw yellow Color, Urine [facility] ([facility]) pH,urine 6.0 units 5.0-9.0 pH,urine [facility] ([facility]) appearance, urine clear clear Appearance, Urine [facility] ([facility]) ketone, urine auto negative negative Ketone, Urine Aut o [place] ([facility]) protein, urine auto negative negative Protein, Urine A uto [place] ([facility]) glucose, urine (UA) auto negative negative Glucose, Ur ine (UA) Auto [place] ([facility]) specific gravity urine auto 1.002-1.035 Specifi c [place] Urine Auto [place] ([facility]) nitrite, urine auto negative negative Nitrite, Urine A uto [place] ([facility]) urobilinogen, urine auto 0.2 mg/dL 0.0-2.0 Urobilinoge n, Urine Auto [place] ([facility]) bilirubin, urine auto negative negative Bilirubin, Uri ne Auto [place] ([facility]) blood, urine blood negative negative Blood, Urine Bloo d [facility] ([facility]) leukocyte esterase, urine auto negative negative Leukocyte Esterase, Urine Auto [facility] ([facility]) WBC, urine auto 1 /hpf 0-3 WBC, Urine Auto [place] ([facility]) RBC, urine auto 0 /hpf 0-3 RBC, Urine Auto [place] ([facility]) bacteria, urine auto negative negative Bacteria, Urine Auto [facility] ([facility]) squamous epithelial cell ur AU 0 /hpf 0-6 Squam ous Epithelial Cell Ur AU [facility] ([facility]) hyaline cast, urine auto 0 /lpf 0-1 Hyaline Wilbert t, Urine Auto [facility] ([facility]) ID Date Data Source [id number] 04/26/2020 08:30:00 AM EST [facility] ([facility]) Name Value Range Interpretation Code Description Data Daniela rce(s) Supporting Document(s) total 25(oh) vitamin D 17.1 NG/mL 30.0-100.0 Below low normal T otal 25(Oh) Vitamin D [facility] ([facility]) ID Date Data Source [id number] 04/26/2020 08:30:00 AM EST [facility] ([facility]) Name Value Range Interpretation Code Description Data Daniela rce(s) Supporting Document(s) free T4 0.94 NG/dL 0.78-1.33 Free T4 [facility] ([facility]) thyroid stimulating hormone 2.000 uIU/mL 0.463-3.98 Thyroid Stimulating Hormone [place] ([facility]) ID Date Data Source [id number] 04/26/2020 08:30:00 AM EST [facility] ([facility]) Name Value Range Interpretation Code Description Data Daniela rce(s) Supporting Document(s) triglycerides level 123 mg/dL <150 Triglycerides [place] [facility] ([facility]) cholesterol level 165 mg/dL <200 Cholesterol Level [facility] ([facility]) cholesterol risk ratio <5 Cholesterol R isk Ratio [facility] ([facility]) Cholesterol in LDL [Mass/volume] in Serum or Plasma 75 mg/dL <1 00 LDL Cholesterol [facility] ([facility]) HDL cholesterol 65 mg/dL >40 HDL Cholesterol [place] ([facility]) non-HDL-C 100 mg/dL Non-hdl-c [facility] ([facility]) ID Date Data Source [id number] 04/26/2020 08:30:00 AM EST [facility] ([facility]) Name Value Range Interpretation Code Description Data Daniela rce(s) Supporting Document(s) glucose, fasting 95 mg/dL 70-100 Glucose, Fasting AT [facility]) blood urea nitrogen 10 mg/dL 7-18 Blood Urea Nitro gen [facility] ([facility]) creatinine for GFR 0.98 mg/dL 0.70-1.30 Creatinine for GF R [facility] ([facility]) sodium level 141 mEq/L 136-145 Sodium Level [facility] ([facility]) chloride level 107 mEq/L 98-107 Chloride Level [facility] ([facility]) potassium serum 4.4 mEq/L 3.5-5.1 Potassium Serum [facility] ([facility]) carbon dioxide level 29 mEq/L 21-32 Carbon Dioxide Level [facility] ([facility]) anion gap 5 mEq/L 8-16 Below low normal Anion Gap [facility] ( [facility]) AST/SGOT 10 U/L 7-37 AST/SGOT [facility] ([facility]) ALT/SGPT 17 U/L 12-78 ALT/SGPT [facility] ([facility]) calcium level 9.5 mg/dL 8.5-10.1 Calcium Level [facility] ( [facility]) alkaline phosphatase 85 U/L 45-117 Alkaline Phosph atase [facility] ([facility]) bilirubin,total 0.7 mg/dL 0.2-1.0 Bilirubin,total [facility] ([facility]) total protein 7.4 gm/dL 6.4-8.2 Total Protein [facility] ( [facility]) albumin/globulin ratio Albumin/globu beck Ratio [facility] ([facility]) albumin 4.7 gm/dL 3.2-5.2 Albumin [facility] ([facility]) ID Date Data Source [id number] 04/26/2020 08:30:00 AM EST [facility] ([facility]) Name Value Range Interpretation Code Description Data Daniela rce(s) Supporting Document(s) platelet estimate normal normal Platelet Estimate [facility] ([facility]) ID Date Data Source [id number] 04/26/2020 08:30:00 AM EST [facility] ([facility]) Name Value Range Interpretation Code Description Data Daniela rce(s) Supporting Document(s) lymphocytes 57 % 16-44 Above high normal Lymphocytes ATHEN A ([facility]) neutrophils 35 % 28-66 Neutrophils [facility] ([facility]) monocytes 2 % 0-5 Monocytes [facility] ([facility]) basophils 1 % 0-1 Basophils [facility] ([facility]) eosinophils 2 % 0-3 Eosinophils [facility] ([facility]) atypical lymph 3 % 0-5 Atypical Lymph [facility] ([facility]) ID Date Data Source [id number] 04/26/2020 08:30:00 AM EST [facility] ([facility]) Name Value Range Interpretation Code Description Data Daniela rce(s) Supporting Document(s) white blood count 9.4 10 4.0-10.0 White Blood Count [facility] ([facility]) hemoglobin 13.9 g/dL 13.5-17.5 Hemoglobin [facility] ([facility]) red blood count 4.42 10 4.30-6.10 Red Blood Count [facility] ([facility]) mean corpuscular volume 95.7 fL 80.0-96.0 Mean Corpusc ular Volume [facility] ([facility]) hematocrit 42.3 % 42.0-52.0 Hematocrit [facility] ([facility]) red cell distribution width 11.6 % 11.5-14.5 Red Cell Distribution Width [facility] ([facility]) mean corpuscular HGB conc 32.9 g/dL 32.0-36.5 Mean Corpu scular HGB Conc [facility] ([facility]) mean corpuscular hemoglobin 31.4 pg 27.0-33.0 Mean Cor puscular Hemoglobin [facility] ([facility]) nucleated red blood cell % 0.0 % 0-0 Nucleated Red Blood Cell % [facility] ([facility]) platelet count, automated 255 10 150-450 Platelet C ount, Automated [facility] ([facility]) Procedure Social History Code Duration Value Status Description Data Source(s ) Smoking 07/12/2020 12:00:00 AM EDT Unknown if ever smoked comp leted Unknown if ever smoked [facility] ([facility]) Smoking 06/02/2020 12:00:00 AM EST Unknown if ever smoked comp leted Unknown if ever smoked [facility] ([facility]) Smoking 05/28/2020 12:00:00 AM EST Unknown if ever smoked comp leted Unknown if ever smoked [facility] ([facility]) Smoking 05/21/2020 12:00:00 AM EST Unknown if ever smoked comp leted Unknown if ever smoked [facility] ([facility]) Smoking 05/07/2020 12:00:00 AM EST Unknown if ever smoked comp leted Unknown if ever smoked [facility] ([facility]) Smoking 04/13/2020 12:00:00 AM EST Unknown if ever smoked comp leted Unknown if ever smoked [facility] ([facility]) Smoking 03/01/2020 12:00:00 AM EST Unknown if ever smoked comp leted Unknown if ever smoked [facility] ([facility]) Smoking 02/17/2020 12:00:00 AM EDT Unknown if ever smoked comp leted Unknown if ever smoked [facility] ([facility]) Smoking 02/02/2020 12:00:00 AM EDT Unknown if ever smoked comp leted Unknown if ever smoked [facility] ([facility]) Vital Signs ID Date Data Source UNK Name Value Range Interpretation Code Description Data Source(s) Body weight 121.00 [lb_av] 121.00 [lb_av] MED[facility] T ([facility], ) Body temperature 97.1 [degF] 97.1 [degF] [facility] ([facility], ) Body height 69 [in_i] 69 [in_i] [facility] ([facility], ) 5'9" Body height 69 [in_i] 69 [in_i] [facility] ([facility], ) 5'9" Body weight 121.00 [lb_av] 121.00 [lb_av] MEDEN T ([facility]) Body mass index (BMI) [Ratio] 17.9 kg/m2 17.9 k g/m2 [facility] ([facility]) [place] body weight 160 [lb_av] 160 [lb_av] [facility] ([facility]) Body weight 54.886 kg 54.886 kg [facility] ([facility]) Body surface area Derived from formula 1.67 m2 1.67 m2 [facility] ([facility]) Body temperature 97.1 [degF] 97.1 [degF] [facility] ([facility]) Body mass index (BMI) [Ratio] 17.9 kg/m2 17.9 k g/m2 [facility] ([facility]) [place] body weight 160 [lb_av] 160 [lb_av] [facility] T ([facility]) Body weight 54.886 kg 54.886 kg [facility] ([facility]) Body surface area Derived from formula 1.67 m2 1.67 m2 [facility] ([facility]) Diastolic blood pressure 64 mm[Hg] 64 mm[Hg] [facility] ([facility]) Body height 68 [in_i] 68 [in_i] [place] ([facility]) Body mass index (BMI) [Ratio] 18.4 kg/m2 18.4 k g/m2 [facility] ([facility]) Systolic blood pressure 94 mm[Hg] 94 mm[Hg] [facility] ([facility]) Body weight 1938 [oz_av] 1938 [oz_av] [facility] ([facility]) Diastolic blood pressure 64 mm[Hg] 64 mm[Hg] [facility] ([facility]) Body height 68 [in_i] 68 [in_i] [facility] ([facility]) Body mass index (BMI) [Ratio] 18.4 kg/m2 18.4 k g/m2 [facility] ([facility]) Systolic blood pressure 94 mm[Hg] 94 mm[Hg] A [facility] ([facility]) Body weight 1938 [oz_av] 1938 [oz_av] [facility] ([facility]) Patient Treatment Plan of Care Planned Activity Planned Date Details Description Data Source (s) Prednisone 20 MG Oral Tablet [facility] ([facility]) Penicillin V Potassium 500 MG Oral Tablet [facility] ([facility]) Oseltamivir 75 MG Oral Capsule [facility] ([facility]) olanzapine 5 MG Oral Tablet [facility] ([facility]) 24 HR Guanfacine 1 MG Extended Release Oral Tablet [facility] ([facility]) cetirizine hydrochloride 10 MG Oral Tablet [facility] ([facility]) Amoxicillin 875 MG / Clavulanate 125 MG Oral Tablet [facility] ([facility]) Prednisone 20 MG Oral Tablet [facility] ([facility]) Penicillin V Potassium 500 MG Oral Tablet [facility] ([facility]) Oseltamivir 75 MG Oral Capsule [facility] ([facility]) olanzapine 5 MG Oral Tablet [facility] ([facility]) 24 HR Guanfacine 1 MG Extended Release Oral Tablet [facility] ([facility]) cetirizine hydrochloride 10 MG Oral Tablet [facility] ([facility]) Amoxicillin 875 MG / Clavulanate 125 MG Oral Tablet [facility] ([facility])
--- OUTSIDE RECORDS SUMMARY | 2021-03-27 10:46 | CCD ---
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 ................................ : 20 Film# .................. .:[id number] Sex ................................. : M Unsigned transcriptions are preliminary reports and do not represent a medical or legal document HAND COMPLETE-3 OR MORE S R [id number] COMPLETE:06/12/20 21:01 RLB [id number] Reason(s): Pain RIGHT [...] rce(s) Supporting Document(s) ID Date Data Source [id number] 06/12/2020 07:14:00 PM EST [facility] 1 OrderSheet [facility] [address] [place] [address] Phone #: ext- [phone] 06/12/2020 19:13 Patient: [...] (UE) (Right) 20:35 06/12/2020 20:38 Sydnie,(Dorsal) (Leeanne Dickinson) (Soup Ladrhonda P.A.-C;looking)[Electronically signed by Bing Otoole (20:46 06/12/2020)] 2 OrderSheet [facility] [address] [place] [address] Phone #: [phone]- [phone] 06/12/2020 19:13 Patient: ALEXSANDER BAIN Sex: M : 2000 Age: 20y[Electronically signed by Dayo CorreaAAlfredo-Sindy (21:38 06/12/2020)][Electronically locked by Bing Otoole (20:46 06/12/2020)] Name Value Range Interpretation Code Description Data Daniela rce(s) Supporting Document(s) ID Date Data Source [id number] 06/12/2020 07:14:00 PM EST [facility] 1 Medication Reconciliation Report [facility] [address] [place] [address] Phone #: ext- [phone] 06/12/2020 19:13 Patient: ALEXSANDER BAIN Sex: M [...] Dispense 9 tablet. Refills: 0.Substitution permitted.Pharmacy - [id number] - [id number] [facility] ; [place] [address]. FaxNumber: . -- Dayo Correa P.A.-C Name Value Range Interpretation Code Description Data Daniela rce(s) Supporting Document(s) ID Date Data Source [id number] 06/12/2020 07:14:00 PM EST [facility] 1 Medication Administration Record [facility] [address] [place] [address] Phone #: ext- [phone] 06/12/2020 19:13 Patient: ALEXSANDER BAIN Sex: M [...] rce(s) Supporting Document(s) ID Date Data Source [id number] 06/12/2020 07:14:00 PM EST [facility] 1 General Instructions [facility] [address] [place] [address] Phone #: ext- [phone] 06/12/2020 19:13 Patient: [...] Dispense 9 tablet. Refills: 0.Substitution permitted.Pharmacy - [facility][id number] - [id number] [facility] ; [place] [address]. Phone: FaxNumber: .Follow-up:Return to the emergency department as needed. Follow up with your healthcare provider in about twodays if not better. Call for an appointment.Understanding of the discharge instructions verbalized by patient.Follow-up with: [facility], , , [address] [place], [place], [facility] 2 General Instructions [facility] Dep artment [address] [place] [address] Phone #: ext- [phone] 06/12/2020 19:13 Patient: ALEXSANDER BAIN Sex: M [...] for the time advised. You may use dqjf-zja-gnvqpyu pain medicine to control pain, unless another [...] provider when it is safe to begin [id number]-ddycoqcrnaguftx.Sometimes fractures don't show up on the first X-ray. Bruises and sprains can sometimes hurt as 3 General Instructions [facility] [address] [place] [address] Phone #: ext- [phone] 06/12/2020 19:13 Patient: ALEXSANDER BAIN Sex: M [...] hand becomes cold, blue, numb, or tingly [id number] [employer]. [address] [place] [address]. All rights reserved. This information is not [...] applying splints and casts. 4 General Instructions [facility] [address] [place] [address] Phone #: ext- [phone] 06/12/2020 19:13 Patient: ALEXSANDER BAIN [facility]#: [id number] Sex: M : 2000 Age: 20yHome care [...] such as nicks or tears. Follow the account maintenance representative's or provider's instructions on how to clean [...] does not fit correctly. 5 General Instructions [facility] [address] [place] [address] Phone #: ext- [phone] 06/12/2020 19:13 Patient: ALEXSANDER BAIN Sex: M : 2000 Age: 20y You can't put weight on the injured area when wearing the splint or cast if you are allowed to do so. You have questions about using the splint or cast. The splint or cast gets wet. 200 0 [employer] [address] [place] [address]. All rights reserved. This information is not [...] will help control swelling. 6 General Instructions [facility] [address] [place] [address] Phone #: ext- [phone] 06/12/2020 19:13 Patient: [...] doesn't go away after bandage is removed [id number] [employer] [address] [place] [address]. All rights reserved. This information is not intended as asubstitute for professional medical care. Always follow your healthcare professional's instructions. You have been given the following additional information: Finger Sprain Splints and Casts LEVY Wrap 7 General Instructions [facility] [address] [place] [address] Phone #: ext- [phone] 06/12/2020 19:13 Patient: ALEXSANDER BAIN Sex: M : 2000 Age: 20yLimit use of your right hand for one weeks. Do not work for two days.(Electronically signed by Dayo Correa P.A.-C 06/12/2020 21:38) Name Value Range Interpretation Code Description Data Daniela rce(s) Supporting Document(s) ID Date Data Source [id number] 06/12/2020 07:14:00 PM EST [facility] 1 Clinical Report - Nurses [facility] [address] [place] [address] Phone #: ext- [phone] 06/12/2020 19:13 Patient: ALEXSANDER BAIN Sex: M : 2000 Age: 20yTRIAGEArrived by private vehicle. Historian: patient.Acuity: LEVEL 4.Chief Complaint: INJURY TO RIGHT HAND. INJURY TO THE RIGHT HAND and RIGHT THUMB.Alert. No acute distress.Occurred at home. Occurred 23:30 06/11/2020. ( PT said last night he was using a putty shine worker andgot angry and slammed it down into the bucket and injured his right hand. He has has a superficial cut tohis right thumb and he says "it felt like a nerve shredded in my hand". 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 SEPSIS [...] harming or 2 Clinical Report - Nurses [facility] [address] [place] [address] Phone #: ext- [phone] 06/12/2020 19:13 Patient: ALEXSANDER BAIN Sex: M [...] No skin integrity risk identified. --06/12/20 Shima Schafeer R.N. SOCIAL HX: The patient has not [...] Bing Otoole 3 Clinical Report - Nurses [facility] [address] [place] [address] Phone #: ext- [phone] 06/12/2020 19:13 Patient: ALEXSANDER BAIN Sex: M : 2000 Age: 20y 19:37 06/12/2020 Tylenol (APAP) PO 1000 mg given. Allergies verified and confirmed 5 rights. Information reviewed with patient including reason for taking this medication, signs of allergic reaction and precautions. Verbalizes understanding. --19:37 06/12/20 Bing Otoole 19:59 06/12/20. BP: 114/61. MAP: 78. HR: 74. RR: 16. O2 saturation: 99%. --19:59 06/12/20 Marion manager hematology, BRENNEN Reynolds Tech1 late entry - 20:13 [...] Patient verbalized understanding. Written instructions provided in Guamanian. 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 He was discharged home and unaccompanied at time of discharge. He left ambulatory and via private vehicle. Limnology Teacher driving. --20:45 06/12/20 Bing Otoole 20:44 06/12/20. BP: 106/58. MAP: 74. HR: 58. RR: 15. O2 saturat ion: 97%. Temp: 97.7 F. Pain level now: 05/02. --20:45 06/12/20 Bing Otoole Departure time: 20:46 06/12/2020. --20:46 06/12/20 Bing Otoole. 4 Clinical Report - Nurses [facility] [address] [place] [address] Phone #: ext- [phone] 06/12/2020 19:13 Patient: ALEXSANDER BAIN Sex: M : 2000 Age: 20yLocked/Released at 06/12/2020 20:46 by Bing Otoole Name Value Range Interpretation Code Description Data Daniela rce(s) Supporting Document(s) ID Date Data Source [id number] 06/12/2020 07:14:00 PM [facility] 1 Clinical Report - Physicians/Mid Levels [facility] [address] [place] [address] Phone #: ext- [phone] 06/12/2020 19:13 Patient: [...] last night he was using a putty shine worker and got angry and slammed it down [...] NOTES 2 Clinical Report - Physicians/Mid Levels [facility] [address] [place] [address] Phone #: ext- [phone] 06/12/2020 19:13 [facility]: [facility]AND[facility]AIN [id number] Sex: M : 2000 Age: 20y The [...] concerns, 3 Clinical Report - Physicians/Mid Levels [facility] [address] [place] [address] Phone #: ext- [phone] 06/12/2020 19:13 Patient: ALEXSANDER BAIN Sex: M [...] Medications: 4 Clinical Report - Physicians/Mid Levels [facility] [address] [place] [address] Phone #: ext- [phone] 06/12/2020 19:13 Patient: ALEXSANDER BAIN Sex: M : 2000 Age: 20y cyclobenzaprine 10 mg tablet Take 1 tablet three times a day for 3 days -- Dispense 9 tablet. Refills: 0. Substitution permitted. Pharmacy - [id number] - [id number] [place] [address]. . Follow-up: Return to the emergency department as needed. Follow up with your healthcare provider in about two days if not better. Call for an appointment. Understanding of the discharge instructions verbalized by patient. Follow-up with: [facility], , , [address] [place] [address], [facility] Follow up. Call for the next available appointment. Reason for referral: evaluation, treatment and To establish care.(Electronically signed by Dayo Correa P.A.-C 06/12/2020 21:38) Name Value Range Interpretation Code Description Data Daniela rce(s) Supporting Document(s) ID Date Data Source [id number] 04/26/2020 08:30:00 AM BEN LEMUS ([facility]) Name Value Range Interpretation Code Description Data Daniela rce(s) Supporting Document(s) Hemoglobin A1c/Hemoglobin.total in Blood 5.3 % Hemoglobin a1C [facility] ([facility]) estimated average glucose 105 mg/dL 60-110 Estimated Average Glucose [facility] ([facility]) ID Date Data Source [id number] 04/26/2020 08:30:00 AM EST [facility] ([facility]) Name Value Range Interpretation Code Description Data Daniela rce(s) Supporting Document(s) color, urine straw yellow Color, Urine [facility] ([facility]) pH,urine 6.0 units 5.0-9.0 pH,urine [facility] ([facility]) appearance, urine clear clear Appearance, Urine [facility] ([facility]) ketone, urine auto negative negative Ketone, Urine Aut o [facility] ([facility]) protein, urine auto negative negative Protein, Urine A uto [facility] ([facility]) glucose, urine (UA) auto negative negative Glucose, Ur ine (UA) Auto [facility] ([facility]) specific gravity urine auto 1.002-1.035 Specifi c [place] Urine Auto [facility] ([facility]) nitrite, urine auto negative negative Nitrite, Urine A uto [facility] ([facility]) urobilinogen, urine auto 0.2 mg/dL 0.0-2.0 Urobilinoge n, Urine Auto [facility] ([facility]) bilirubin, urine auto negative negative Bilirubin, Uri ne Auto [facility] ([facility]) blood, urine blood negative negative Blood, Urine Bloo d [facility] ([facility]) leukocyte esterase, urine auto negative negative Leukocyte Esterase, Urine Auto [facility] ([facility]) WBC, urine auto 1 /hpf 0-3 WBC, Urine Auto ATHE NA ([facility]) RBC, urine auto 0 /hpf 0-3 RBC, Urine Auto ATHE NA ([facility]) bacteria, urine auto negative negative Bacteria, Urine Auto [facility] ([facility]) squamous epithelial cell ur AU 0 /hpf 0-6 Squam ous Epithelial Cell Ur AU [facility] ([facility]) hyaline cast, urine auto 0 /lpf 0-1 Hyaline Wilbert t, Urine Auto [facility] ([facility]) ID Date Data Source [id number] 04/26/2020 08:30:00 AM EST [facility] ([facility]) Name Value Range Interpretation Code Description Data Daniela rce(s) Supporting Document(s) total 25(oh) vitamin D 17.1 NG/mL 30.0-100.0 Below low normal T otal 25(Oh) Vitamin D [facility] ([facility]) ID Date Data Source [id number] 04/26/2020 08:30:00 AM EST [facility] ([facility]) Name Value Range Interpretation Code Description Data Daniela rce(s) Supporting Document(s) free T4 0.94 NG/dL 0.78-1.33 Free T4 [facility] ([facility]) thyroid stimulating hormone 2.000 uIU/mL 0.463-3.98 Thyroid Stimulating Hormone [facility] ([facility]) ID Date Data Source [id number] 04/26/2020 08:30:00 AM EST [facility] ([facility]) Name Value Range Interpretation Code Description Data Daniela rce(s) Supporting Document(s) triglycerides level 123 mg/dL <150 Triglycerides [place] [facility] ([facility]) cholesterol level 165 mg/dL <200 Cholesterol Level [facility] ([facility]) cholesterol risk ratio <5 Cholesterol R isk Ratio [facility] ([facility]) Cholesterol in LDL [Mass/volume] in Serum or Plasma 75 mg/dL <1 00 LDL Cholesterol [facility] ([facility]) HDL cholesterol 65 mg/dL >40 HDL Cholesterol ATHE ([facility]) non-HDL-C 100 mg/dL Non-hdl-c [facility] ([facility]) ID Date Data Source [id number] 04/26/2020 08:30:00 AM EST [facility] ([facility]) Name Value Range Interpretation Code Description Data Daniela rce(s) Supporting Document(s) glucose, fasting 95 mg/dL 70-100 Glucose, Fasting AT ROBERT [facility]) blood urea nitrogen 10 mg/dL 7-18 Blood Urea Nitro gen [facility] ([facility]) creatinine for GFR 0.98 mg/dL 0.70-1.30 Creatinine for GF R [facility] ([facility]) sodium level 141 mEq/L 136-145 Sodium Level [facility] ([facility]) chloride level 107 mEq/L 98-107 Chloride Level [facility] ([facility]) potassium serum 4.4 mEq/L 3.5-5.1 Potassium Serum ATHE ([facility]) carbon dioxide level 29 mEq/L 21-32 Carbon Dioxide Level [facility] ([facility]) anion gap 5 mEq/L 8-16 Below low normal Anion Gap [facility] ( [facility]) AST/SGOT 10 U/L 7-37 AST/SGOT [facility] ([facility]) ALT/SGPT 17 U/L 12-78 ALT/SGPT [facility] ([facility]) calcium level 9.5 mg/dL 8.5-10.1 Calcium Level ALLAN ( [facility]) alkaline phosphatase 85 U/L 45-117 Alkaline Phosph atase [facility] ([facility]) bilirubin,total 0.7 mg/dL 0.2-1.0 Bilirubin,total ATHE ([facility]) total protein 7.4 gm/dL 6.4-8.2 Total Protein [facility] ( [facility]) albumin/globulin ratio Albumin/globu beck Ratio [facility] ([facility]) albumin 4.7 gm/dL 3.2-5.2 Albumin [facility] ([facility]) ID Date Data Source [id number] 04/26/2020 08:30:00 AM EST [facility] ([facility]) Name Value Range Interpretation Code Description Data Daniela rce(s) Supporting Document(s) platelet estimate normal normal Platelet Estimate [facility] ([facility]) ID Date Data Source [id number] 04/26/2020 08:30:00 AM EST [facility] ([facility]) Name Value Range Interpretation Code Description Data Daniela rce(s) Supporting Document(s) lymphocytes 57 % 16-44 Above high normal Lymphocytes ATHEN A ([facility]) neutrophils 35 % 28-66 Neutrophils [facility] ([facility]) monocytes 2 % 0-5 Monocytes [facility] ([facility]) basophils 1 % 0-1 Basophils [facility] ([facility]) eosinophils 2 % 0-3 Eosinophils [facility] ([facility]) atypical lymph 3 % 0-5 Atypical Lymph [facility] ([facility]) ID Date Data Source [id number] 04/26/2020 08:30:00 AM EST [facility] ([facility]) Name Value Range Interpretation Code Description Data Daniela rce(s) Supporting Document(s) white blood count 9.4 10 4.0-10.0 White Blood Count [facility] ([facility]) hemoglobin 13.9 g/dL 13.5-17.5 Hemoglobin [facility] ([facility]) red blood count 4.42 10 4.30-6.10 Red Blood Count ATHE ([facility]) mean corpuscular volume 95.7 fL 80.0-96.0 Mean Corpusc ular Volume [facility] ([facility]) hematocrit 42.3 % 42.0-52.0 Hematocrit [facility] ([facility]) red cell distribution width 11.6 % 11.5-14.5 Red Cell Distribution Width [facility] ([facility]) mean corpuscular HGB conc 32.9 g/dL 32.0-36.5 Mean Corpu scular HGB Conc [facility] ([facility]) mean corpuscular hemoglobin 31.4 pg 27.0-33.0 Mean Cor puscular Hemoglobin [facility] ([facility]) nucleated red blood cell % 0.0 % 0-0 Nucleated Red Blood Cell % [facility] ([facility]) platelet count, automated 255 10 150-450 Platelet C ount, Automated [facility] ([facility]) Procedure Social History Code Duration Value Status Description Data Source(s ) Smoking 07/12/2020 12:00:00 AM EDT Unknown if ever smoked comp leted Unknown if ever smoked [facility] ([facility]) Smoking 06/02/2020 12:00:00 AM EST Unknown if ever smoked comp leted Unknown if ever smoked [facility] ([facility]) Smoking 05/28/2020 12:00:00 AM EST Unknown if ever smoked comp leted Unknown if ever smoked [facility] ([facility]) Smoking 05/21/2020 12:00:00 AM EST Unknown if ever smoked comp leted Unknown if ever smoked [facility] ([facility]) Smoking 05/07/2020 12:00:00 AM EST Unknown if ever smoked comp leted Unknown if ever smoked [facility] ([facility]) Smoking 04/13/2020 12:00:00 AM EST Unknown if ever smoked comp leted Unknown if ever smoked [facility] ([facility]) Smoking 03/01/2020 12:00:00 AM EST Unknown if ever smoked comp leted Unknown if ever smoked [facility] ([facility]) Smoking 02/17/2020 12:00:00 AM EDT Unknown if ever smoked comp leted Unknown if ever smoked [facility] ([facility]) Smoking 02/02/2020 12:00:00 AM EDT Unknown if ever smoked comp leted Unknown if ever smoked [facility] ([facility]) Vital Signs ID Date Data Source UNK Name Value Range Interpretation Code Description Data Source(s) Body temperature 97.1 [degF] 97.1 [degF] [facility] ([facility], ) Body height 69 [in_i] 69 [in_i] MED[facility] ([facility]) 5'9" Body weight 121.00 [lb_av] 121.00 [lb_av] MEDEN T ([facility]) Body height 69 [in_i] 69 [in_i] [facility] ([facility]) 5'9" Body weight 121.00 [lb_av] 121.00 [lb_av] MEDEN T ([facility]) Body mass index (BMI) [Ratio] 17.9 kg/m2 17.9 k g/m2 [facility] ([facility]) [facility] body weight 160 [lb_av] 160 [lb_av] MEDEN T ([facility]) Body weight 54.[address] [facility] ([facility]) Body surface area Derived from formula 1.[address] [facility] ([facility]) Body temperature 97.1 [degF] 97.1 [degF] [facility] ([facility]) Body mass index (BMI) [Ratio] 17.9 kg/m2 17.9 k g/m2 [facility] ([facility]) [facility] body weight 160 [lb_av] 160 [lb_av] MEDEN T ([facility]) Body weight 54.[address] [facility] ([facility]) Body surface area Derived from formula 1.[address] [facility] ([facility]) Diastolic blood pressure 64 mm[Hg] 64 mm[Hg] [facility] ([facility]) Body height 68 [in_i] 68 [in_i] [facility] ([facility]) Body mass index (BMI) [Ratio] 18.4 kg/m2 18.4 k g/m2 [facility] [facility] Systolic blood pressure 94 mm[Hg] 94 mm[Hg] A [facility] ([facility] Body weight 1938 [oz_av] 1938 [oz_av] [facility] ([facility]) Diastolic blood pressure 64 mm[Hg] 64 mm[Hg] [facility] ([facility]) Body height 68 [in_i] 68 [in_i] [facility] ([facility]) Body mass index (BMI) [Ratio] 18.4 kg/m2 18.4 k g/m2 [facility] ([facility]) Systolic blood pressure 94 mm[Hg] 94 mm[Hg] A [facility] ([facility]) Body weight 1938 [oz_av] 1938 [oz_av] [facility] ([facility]) Patient Treatment Plan of Care Planned Activity Planned Date Details Description Data Source (s) Prednisone 20 MG Oral Tablet [facility] ([facility]) Penicillin V Potassium 500 MG Oral Tablet [facility] ([facility]) Oseltamivir 75 MG Oral Capsule [facility] ([facility]) olanzapine 5 MG Oral Tablet [facility] ([facility]) 24 HR Guanfacine 1 MG Extended Release Oral Tablet [facility] ([facility]) cetirizine hydrochloride 10 MG Oral Tablet [facility] ([facility]) Amoxicillin 875 MG / Clavulanate 125 MG Oral Tablet [facility] ([facility]) Prednisone 20 MG Oral Tablet [facility] ([facility]) Penicillin V Potassium 500 MG Oral Tablet [facility] ([facility]) Oseltamivir 75 MG Oral Capsule [facility] ([facility]) olanzapine 5 MG Oral Tablet [facility] ([facility]) 24 HR Guanfacine 1 MG Extended Release Oral Tablet [facility] ([facility]) cetirizine hydrochloride 10 MG Oral Tablet [facility] ([facility]) Amoxicillin 875 MG / Clavulanate 125 MG Oral Tablet [facility] ([facility])
--- NOTE | 2021-03-27 10:55 | REP ---
INDICATION: congestion. COMPARISON: PA chest, 05/08/2019 TECHNIQUE: Upright PA and lateral chest images were obtained. FINDINGS: The lungs are clear. The heart borders, mediastinum and pulmonary vascular pattern normal. The upper abdominal bowel gas pattern is normal. There are no bony abnormalities of the chest. IMPRESSION: No evidence of acute cardiopulmonary pathology. <Electronically signed by Yogesh Zamora > 03/27/21 3010
[2021-03-27] MEDS ORDERED: PROAAER10 INH (11:03)
[2021-03-27] MEDS ORDERED: MEDR4TAB PO (11:03)
[2021-03-27 11:30] VITALS: BP 134/68
== END 2021-03-27 11:25 | disposition home or self-care (01) ==
LOC: M ED 10:08
DX: J45.901 Unspecified asthma with (acute) exacerbation (principal); J02.9 Acute pharyngitis, unspecified; B34.9 Viral infection, unspecified; F43.10 Post-traumatic stress disorder, unspecified; F90.9 Attention-deficit hyperactivity disorder, unspecified type; F91.3 Oppositional defiant disorder; F17.200 Nicotine dependence, unspecified, uncomplicated; Z88.8 Allergy status to other drugs, medicaments and biological substances; Z79.899 Other long term (current) drug therapy
CPT/HCPCS: 71046; 87880; 99283; U0003

== ENCOUNTER 2021-11-17 16:30 | Emergency (ER) | payer OTHER ==
[~2021-11-17] VITALS: Ht 172.7 cm; Wt 57.6 kg
[2021-11-17 16:30] VITALS: BP 106/64
[~2021-11-17 16:30] MED LIST changes: +MEDR4TAB PO; -MONT10TA10 PO; +MONT10TA97 PO; +PROAAER10 INH
== END 2021-11-17 16:54 | disposition left against medical advice (07) ==
LOC: M ED 16:30
DX: Z53.21 Procedure and treatment not carried out due to patient leaving prior to being seen by health care provider (principal)

== ENCOUNTER → 2025-03-06 | Outpatient (CLI) | payer OTHER ==
[~2025-03-06] MED LIST changes: +CIPR0.3S37 OD; -CIPR0.3S6 OD; -DEPA250T32 PO; +DIVA-65 PO; -FLUT11IN INH; +FLUT12AE6 INH; -IBUP-1022 PO; +IBUP600T42 PO; +LAMO-18 PO; -LAMO25TA4 PO; +MONT4TAB2 PO; +ONDA-282 PO; -ONDA4TAB6 PO; -SING4CHW9 PO
== END ==
LOC: M RAD 11:55
PROVIDERS: ATTEND Family Medicine Addiction Medicine
DX: M54.40 Lumbago with sciatica, unspecified side (principal)